=== PATIENT | male | born 1945 | race Caucasian/White ===

== ENCOUNTER 2021-05-21 09:30 | Outpatient (RCR) | payer MEDICARE, SELFPAY ==
--- NOTE | 2021-04-21 09:47 | HP.PTEVAL_ITS ---
Patient's Visit Information ANANDA JIMENEZ is a 75 year old M referred to Physical Therapy by Dr. Brett Long MD with a diagnosis of Right TKR 03/30. Date of Evaluation: 04/21/21 Physical Therapist: Altagracia Crandall DPT - Visit Plan Frequency: 2x /Week Duration: 4 Weeks Plan: Left TKR 03/30/21- Focus on LE strength and functional mobility. Reviewed HEP from - Subjective Left TKR by Dr. Brett Long Mar 30, 2021. Stayed overnight at the hospital- lives with in a ranch home with a basement- garage in the lower level. Does have to do the stairs- HR and no issues. He uses a cane at this time- but no AD prior to surgery. Fully I prior to surgery. No pain currently- has been working a lot at home- his makes him. She stretches him and does squats and pushing into extension. Once in awhile he gets dull and achy but it goes away quickly. No problems getting around at this time. Sleep: not disturbed. 60% back to normal activities. 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 PMHx/Meds: see list. - Objective Posture: FH, RS- can correct with verbal cues. Gait: slightly antalgic- decreased heel strike on the left with straight cane. Stairs: asc/desc 8 recip with 1 HR and cane- slow neeraj and decrease smoothness. HR/TR: able. Balance: see FGA. Girth: Patella: 46 cm 6 above: 51 cm. ROM: 0-120 degrees. Strength: Core: fair plus, Hip: 4+/5 SLR: no lag, Knee: Flexion: 19.3, Extn: 28.7, Ankle: 5/5. Flex: HS: moderate, Gastroc: moderate - Balance/Special Test Scores Functional Gait Assessment Score: 21 % Disability: 30.0000 Lower Extremity Functional Score: 50 TUG Test Time Seconds: 14.16 30 Second Chair Rise Test Seconds: 10 WOMAC Total Score: 20 WOMAC Percentatge: 79.1700 - Goals Goal 1:: Patient will be I with HEP and progression Goal Time Frame: 4-6 Weeks Goal 2:: Patient will asc/desc 8 stairs recip with 1 HR and normalized pattern Goal Time Frame: 4-6 Weeks Goal 3:: Patient will amb >300 feet without AD Goal Time Frame: 4-6 Weeks Goal 4:: Patient will report return to all normal activities-90% improvement Goal Time Frame: 4-6 Weeks - Rehabilitation Potential Physical Therapy Diagnosis: Patient presents s/p left TKR 03/30/2021- he has decreased ROM, LE and core strength/stabilization, flex and muscular endurance leading to decreased ability to perform ADL's Rehabilitation Potential: Good - Anticipated Interventions Patient/Client Instruction: Educate patient on: Benefits of Fitness Program Therapeutic Exercise to Include: Strength training, Endurance training, Balance training, Coordination, Agility training, Body mechanics, Postural training, Flexibilty training, Gait and locomotor training, Neuromotor development, Passive ROM, Active ROM, Dynamic Lumbar Stabilization For the Purpose of:: To improve muscle performance and motor function Cryotherapy (ice pack, ice massage): Yes Thermo therapy (hot pack): Yes Ultrasound (thermal/non thermal): No Thank you for the opportunity to evaluate your patient. For Medicare and Medicare HMO plans, please review the plan of care and approve it. It will need to be FAXED BACK to us at [phone] for Medicare purposes. For Medicare only, by signing this I certify the plan of care. Please let me know if there are questions or concerns regarding this plan of care. Physician Signature: Date:
--- NOTE | 2021-05-21 09:59 | HP.PTDCSUM_ITS ---
It has been my pleasure to treat ANANDA JIMENEZ referred by Dr. Brett Long MD, with the diagnosis of Left TKR 03/30 for a total of 8 visit(s). Discharge Date: Please see the following information for a summary of their discharge status. Subjective: Little Stiff today as he had to put a new dryer vent in yesterday and was down on his knees. Patient is back to all normal ADL's % Improvement: 90 Objective/Function: Posture: good throughout Gait: no deviation noted no AD Stairs: asc/desc 8 recip with no HR HR/TR: able. SLS: 15 sec Girth: Patella: 43.5 cm 6 above: 53 cm. ROM: 0-135 degrees. Strength: Core: fair plus, Hip: 4+/5 SLR: no lag, Knee: Flexion: 27.8, Extn: 47.8, Ankle: 5/5. Flex: HS: moderate, Gastroc: moderate Goal 1:: Patient will be I with HEP and progression Goal Progress: Goal Met Goal 2:: Patient will asc/desc 8 stairs recip with 1 HR and normalized pattern Goal Progress: Goal Met Goal 3:: Patient will amb >300 feet without AD Goal Progress: Goal Met Goal 4:: Patient will report return to all normal activities-90% improvement Goal Progress: Goal Met Plan: Discharge to [facility] If there are questions or concerns regarding this patient's physical therapy, please feel free to call me at [phone]. Thank you for the referral of this patient. Sincerely, Altagracia Crandall, DPT Balance/Gait/Functional tests - Balance/Special Test Scores Functional Gait Assessment Score: 21 % Disability: 30.0000 Lower Extremity Functional Score: 80 TUG Test Time Seconds: 9.2 Tug Test: <10 sec.=free mobile 30 Second Chair Rise Test Seconds: 12 WOMAC Total Score: 0 WOMAC Percentage: 100
== END 2021-05-21 10:12 | disposition home or self-care (01) ==
LOC: PT 09:30
PROVIDERS: Referring Provider Orthopaedic Surgery; Visit Provider Orthopaedic Surgery
DX: Z47.1 Aftercare following joint replacement surgery (principal); Z96.651 Presence of right artificial knee joint
CPT/HCPCS: 97110; 97162; 97164

== ENCOUNTER 2022-05-12 10:14 | Emergency (ER) | payer MEDICARE, SELFPAY ==
[2022-05-12 10:16] VITALS: BP 117/63; PULSE 87; RESP 18; TEMP 38.4; O2SAT 90; BMI 24.8
[2022-05-12] MEDS: 0.9% Normal Saline 1,000 ML 1000 ML IV (11:30)
--- NOTE | 2022-05-12 11:33 | EX.ED.DYSGE1 ---
HPI History of Present Illness Chief Complaint: Nausea/Vomiting Informant: patient Onset/Context/Timing Onset: Days (5) Context: Gradual Onset Timing: Continuous Quality: Aching Location: Generalized Worsened by: Nothing Relieved by: Nothing Narrative Narrative: Patient presents with fever, cough, nausea, and vomiting for the past 5 days. Patient states it is gradually gotten worse. Patient states he feels achy all over. Patient states nothing makes it worse. Patient states nothing makes it better. Patient states he is coughing up some yellow sputum. Patient states his fever was up to 101.6. Patient admits to some neck pain. Patient denies any diarrhea. Patient denies any hematemesis or coffee-ground emesis. [facility] Medical History (Updated 05/12/22 @ 13:[address] Viet Silva, ) PTSD (post-traumatic stress disorder) TIA (transient ischemic attack) Home Medications albuterol sulfate 90 mcg/actuation aerosol inhaler (Ventolin HFA) 2 puff inhalation Q6H PRN PRN Sob &/Or Wheezing 12/05/15 [History Last Taken 12/05/15] aspirin 325 mg tablet 325 mg PO DAILY@0800 12/05/15 [History Last Taken 12/05/15] budesonide-formoterol HFA 160 mcg-4.5 mcg/actuation aerosol inhaler (Symbicort) 1 puff inhalation BID 12/05/15 [History Last Taken 12/05/15] clopidogrel 75 mg tablet 75 mg PO DAILY 12/05/15 [History Last Taken 12/04/15] epinephrine 0.3 mg/0.3 mL injection, auto-injector 0.3 mg IM X1 12/05/15 [History Last Taken Unknown] loratadine 10 mg tablet (Allergy Relief (loratadine)) 10 mg PO QHS 12/05/15 [History Last Taken 12/04/15] oxybutynin chloride 10 mg tablet,extended release 24 hr (Ditropan XL) 20 mg PO BID 12/05/15 [History Last Taken 12/05/15] prazosin 5 mg capsule (Minipress) 5 mg PO QHS 12/05/15 [History Last Taken 12/04/15] sertraline 100 mg tablet 200 mg PO DAILY 12/05/15 [History Last Taken 12/05/15] simvastatin 10 mg tablet 10 mg PO QHS 12/05/15 [History Last Taken 12/04/15] trazodone 50 mg tablet 100 mg PO QHS 12/05/15 [History Last Taken 12/04/15] oseltamivir 75 mg capsule 75 mg PO BID #10 CAPSULES 05/12/22 [Rx Last Taken Unknown] Allergy/AdvReac Type Severity Reaction Status Date / Time penicillin G Allergy Unknown Verified 05/12/22 10:15 venom-honey bee Allergy Unknown Verified 05/12/22 10:15 [bee venom (honey bee)] venom-wasp [wasp venom] Allergy Unknown Verified 05/12/22 10:15 Surgical History (Updated 05/12/22 @ 11:[address] Viet Silva DO) Hx of total knee replacement Social History Smoking Status: Former smoker ROS ROS ED Constitutional Constitutional ED: Reports chills and fever(s) Eyes Eyes: Denies blurry vision or change in vision ENT ENT ED: Reports sore throat; Denies rhinorrhea Cardiovascular Cardiovascular: Reports chest pain; Denies palpitations Respiratory/Chest Respiratory/Chest: Reports cough and sputum; Denies dyspnea Gastrointestinal Gastrointestinal: Reports nausea and vomiting Genitourinary Genitourinary ED: Denies dysuria or hematuria Musculoskeletal Musculoskeletal: Reports neck pain; Denies back pain Integumentary Denies abscess or rash Neurologic Neurologic: Denies headache(s) or weakness Allergic/Immunologic Allergic/Immunologic ED: Denies mouth swelling or urticaria EXAM Physical Exam Const Vital Signs: 05/12/22 10:16 05/12/22 11:59 05/12/22 12:39 Temperature 101.2 F H 100.1 F H Temperature Source Oral Temporal Pulse Rate 87 87 Respiratory Rate 18 18 22 H Respiratory Pattern Normal Blood Pressure 117/63 115/59 L Blood Pressure Mean 81 77 Pulse Ox 90 94 Oxygen Delivery Method Room Air Room Air Positive well nourished and well developed General Appearance ED: well developed and NAD HEENT Reports moist mucous membranes Neck supple and no JVD Resp normal respiratory effort Auscultation: wheezes expiratory wheezes and throughout Cardio regular rate, regular rhythm and no murmurs GI normal to inspection, nondistended, normoactive bowel sounds Palpation: soft and tender LLQ, RLQ and suprapubic; Negative for guarding or rebound tenderness present Extremity normal to inspection General Extremety ED: Negative for edema or tenderness General Extremity: Negative for edema Neuro oriented x3, CN's II-XII intact bilaterally and no sensory deficits noted Sensorium / Orientation: alert Motor Exam: strength 5/5 throughout Psych mental status grossly normal Skin no rashes or lesions noted MDM MDM MDM Narrative Medical decision making narrative: Patient was given IV fluids here. Patient was given a dose of Tylenol. Patient was given a DuoNeb aerosol. EKG was obtained. On my interpretation, it showed a normal sinus rhythm with a rate of 79. PA interval, QRS interval, and QTc intervals were all normal. There is left axis deviation at -36. There are no acute ST or T wave changes. CBC shows a mild anemia with hemoglobin of 11.0 and hematocrit 33.5. Pro time was slightly elevated at 15.6. INR is 1.3. PTT is 34.6. Comprehensive metabolic profile was essentially within normal limits. Lactate was normal. High-sensitivity troponin was normal. Urinalysis does not show any evidence of urinary tract infection or hematuria. PA and lateral chest x-ray was obtained. There are 2 views. On my interpretation, lung rodrigues bibasilar scarring or patchy infiltrate present in the left lung base. There is normal cardiac silhouette. Bony thorax is normal. Radiologist also interpreted the x-ray and agrees. COVID-19 rapid antigen was obtained and was negative. Influenza A rapid antigen was obtained and was positive. Influenza B rapid antigen was negative. Patient is feeling better on reevaluation. Patient was given a dose of Tamiflu here. Patient was given a prescription for Tamiflu. Patient was instructed to follow-up with his primary care physician in 3 to 5 days. Patient understood and was agreeable with the plan. All questions were answered. Lab Data Attestation: I reviewed the patient's lab results. Labs: Laboratory Results - last 24 hr 05/12/22 05/12/22 05/12/22 11:50 11:50 11:50 WBC 4.8 RBC 3.60 L Hgb 11.0 L Hct 33.5 L MCV 93.1 MCH 30.6 MCHC 32.8 RDW Std Deviation 47.0 H RDW Coeff of Rafita 13.8 Plt Count 65 L MPV 11.1 Immature Gran % (Auto) 0.600 Neut % (Auto) 85.1 H Lymph % (Auto) 5.5 L [place] % (Auto) 8.2 Eos % (Auto) 0.4 Baso % (Auto) 0.2 Absolute Neuts (auto) 4.1 Absolute Lymphs (auto) 0.26 L Nucleated RBC % 0 Differential Comment SCANNED Platelet Estimate MOD DEC PT 15.6 H INR 1.3 APTT 34.6 Sodium 139 Potassium 3.8 Chloride 108 H Carbon Dioxide 25.0 Anion Gap 6 BUN 22 H Creatinine 1.22 Estim Creat Clear Calc 72.13 Est GFR (MDRD) Af Amer 75 Est GFR (MDRD) Non-Af 62 BUN/Creatinine Ratio 18.0 Glucose 162 H Lactic Acid Calcium 8.1 L Total Bilirubin 0.60 AST 15 ALT 22 Alkaline Phosphatase 54 Troponin I High Sens 8 Total Protein 6.5 Albumin 3.0 L Globulin 3.5 Albumin/Globulin Ratio 0.9 Urine Color Urine Clarity Urine pH Ur Specific [place] Urine Protein Urine Glucose (UA) Urine Ketones Urine Occult Blood Urine Nitrite Urine Bilirubin Urine Urobilinogen Ur Leukocyte Esterase Urine RBC Urine WBC Ur Squamous Epith Cells Urine Bacteria Urine Mucus 05/12/22 05/12/22 11:50 12:00 WBC RBC Hgb Hct MCV MCH MCHC RDW Std Deviation RDW Coeff of [place] Plt Count MPV Immature Gran % (Auto) Neut % (Auto) Lymph % (Auto) [place] % (Auto) Eos % (Auto) Baso % (Auto) Absolute Neuts (auto) Absolute Lymphs (auto) Nucleated RBC % Differential Comment Platelet Estimate PT INR APTT Sodium Potassium Chloride Carbon Dioxide Anion Gap BUN Creatinine Estim Creat Clear Calc Est GFR (MDRD) Af Amer Est GFR (MDRD) Non-Af BUN/Creatinine Ratio Glucose Lactic Acid 0.8 Calcium Total Bilirubin AST ALT Alkaline Phosphatase Troponin I High Sens Total Protein Albumin Globulin Albumin/Globulin Ratio Urine Color Yellow Urine Clarity Sl. Cloudy Urine pH 5.0 Ur Specific [place] 1.025 Urine Protein 30 H Urine Glucose (UA) Normal Urine Ketones Negative Urine Occult Blood 250 H Urine Nitrite Negative Urine Bilirubin Negative Urine Urobilinogen Normal Ur Leukocyte Esterase 25 H Urine RBC 0-5 SEEN Urine WBC 0-5 SEEN Ur Squamous Epith Cells 0 SEEN Urine Bacteria 0 SEEN Urine Mucus 0 SEEN Radiography Chest X-Ray - ED: 2 View, Read by ED Physician, Read by Radiologist and Left Infiltrate Diagnostic Testing: Clinical Impression(s) from Imaging Studies Chest X-Ray 05/12/22 12:20 IMPRESSION: Findings suggestive of superimposed patchy infiltrate in the left lower lobe on bibasilar scarring. Electronically Signed: Oren Ball MD at 12:43 EST , EKG Initial EKG: Attestation: I personally reviewed and interpreted this EKG as follows: Interpretation: Sinus Rhythm (79) and No Acute Injury Pattern Comments: There is left axis deviation at -36 Prior EKG tracings: available for review Prior: Unchanged (12/16/2016) Discharge Plan Triage Chief Complaint: Nausea/Vomiting Other Complaint: Fever Shortness of Breath ED Provider: Viet Silva Dx/Rx/DC Orders Clinical Impression: Influenza A Instructions: ED Influenza (Adult) Prescriptions: New oseltamivir [oseltamivir] 75 mg capsule 75 mg PO BID Qty: 10 0RF No Action oxybutynin chloride [Ditropan XL] 10 MG tablet extended release 24hr 20 mg PO BID Label Comments: urinary signs and symptoms aspirin 325 MG tablet 325 mg PO DAILY@0800 Label Comments: HEART HEALTH sertraline 100 MG tablet 200 mg PO DAILY Label Comments: MENTAL HEALTH simvastatin 10 MG tablet 10 mg PO QHS Label Comments: CHOLESTEROL LOWERING clopidogrel 75 MG tablet 75 mg PO DAILY Label Comments: BLOOD THINNER prazosin [Minipress] 5 MG capsule 5 mg PO QHS Label Comments: SLEEP epinephrine 0.3 MG syringe 0.3 mg IM X1 Label Comments: BEE STINGS albuterol sulfate [Ventolin HFA] 1 INHALER inhaler 2 puff inhalation Q6H PRN PRN (Reason: Sob &/Or Wheezing) Label Comments: BREATHING loratadine [Allergy Relief (loratadine)] 10 MG tablet 10 mg PO QHS Label Comments: ALLERGIES budesonide-formoterol [Symbicort] 1 INHALER inhaler 1 puff inhalation BID Label Comments: BREATHING trazodone 50 MG tablet 100 mg PO QHS Label Comments: SLEEP [facility] [Primary [facility] Provider] - 3-5 Days Disposition Disposition: Home, Self Care
[2022-05-12] MEDS: Acetaminophen 500 MG Tablet 1000 MG PO (11:53)
[2022-05-12 11:59] VITALS: RESP 18
[2022-05-12] MEDS: Ipratropium/Albuterol Sulfate 3 ML AMPUL.NEB INHALATION (12:00)
[2022-05-12 12:01] LABS: Bacteria 0 SEEN /hpf (None Seen); Mucous, Urine 0 SEEN /hpf (<or=2+); Squamous Epithelial Cells - UA 0 SEEN /hpf (0-5)
[2022-05-12 12:02] LABS: Color, Urine Yellow (Yellow); Glucose, Dipstick Normal (Normal); Ketone-Dipstick Negative (Negative); Leukocyte Esterase-Dipstick 25 /ul (Negative); Nitrite-Dipstick Negative (Negative); Occult Blood-Urine 250 /ul (Negative); Protein-Dipstick 30 mg/dl (Negative); Specific Gravity, Urine 1.025 (1.002-1.030); Urine Bilirubin Dipstick Negative (Negative); Urine Clarity Sl. Cloudy (Clear); Urine Urobilinogen Normal (Normal)
[2022-05-12 12:10] LABS: Red Blood Cells-Urine 0-5 SEEN /hpf (0-5); White Blood Cells 0-5 SEEN /hpf (0-5)
[2022-05-12 12:11] LABS: International Normalized Ratio 1.3; Prothrombin Time (Protime)PT. 15.6 SECONDS (11.7-14.9)
[2022-05-12 12:12] LABS: Partial Thromboplast Time 34.6 Seconds (24.1-36.2)
[2022-05-12 12:13] LABS: Absolute Lymphocyte Count 0.26 X10^3/uL (0.83-4.51); Absolute Neutrophil Count 4.1 X10^3/uL (2.0-7.7); Basophil# 0.01 X10^3/uL; Basophil% 0.2 % (0-1); Eosinophil# 0.02 X10^3/uL; Eosinophils% 0.4 % (0-5); Hematocrit 33.5 % (40-54); Lymphocyte # 0.26 X10^3/ul (0.83-4.51); Lymphocyte % 5.5 % (19-41); Mean Corp Hgb Conc 32.8 g/dL (32-36); Mean Corpuscular Hgb 30.6 pg (27.0-32.0); Mean Corpuscular Volume 93.1 fL (80-94); Mean Platelet Vol. 11.1 fl (6.2-12.0); Monocyte# 0.39 X10^3/uL; Monocyte% 8.2 % (0-10); NRBC Flagged by Analyzer 0 % (0-5); Neutrophil # 4.05 X10^3/uL (2.7-7.7); Neutrophil % 85.1 % (47-70); POSITIVE COUNT YES; POSITIVE DIFFERENTIAL YES; Platelet Count 65 K/mm3 (150-450); RBC Distribution Width CV 13.8 % (11.6-14.6); White Blood Count 4.8 K/mm3 (4.4-11.0)
[2022-05-12 12:18] LABS: Differential Indicated SCAN CRITERIA MET
[2022-05-12 12:19] LABS: ALB/GLOB Ratio 0.9 RATIO (0.9-2.4); AST(SGOT) 15 U/L (15-37); Alanine Aminotransfer ALT/SGPT 22 U/L (16-61); Alkaline Phosphatase 54 U/L (45-117); Anion Gap 6 (5-15); BUN 22 mg/dL (7-18); Calcium,Total 8.1 mg/dL (8.5-10.1); Chloride 108 mmol/L (98-107); Creatinine, Serum 1.22 mg/dL (0.70-1.30); EST Glomerular Filtration Rate 62 mL/min (>60); Est Glom Filt Rate - Afr Amer 75 mL/min (>60); Estimated Creatinine Clearance 72.13 ml/min; Globulin 3.5 g/dL (2.2-4.2); Glucose 162 mg/dL (74-106); Potassium 3.8 mmol/L (3.5-5.1); Protein, Total 6.5 g/dL (6.4-8.2); Sodium Level 139 mmol/L (136-145); Troponin-I HS 8 pg/mL (3.0-78.0)
--- NOTE | 2022-05-12 12:20 | RAD_ITS ---
STUDY: X-RAY CHEST REASON FOR EXAM: Male, 76 years old. Cough and fever. Weakness. TECHNIQUE: PA and lateral views of the chest. COMPARISON: Comparison is made with prior study dated 12/16/2016. FINDINGS: Stable bibasilar interstitial scarring. I suspect superimposed patchy infiltrate in the left lower lobe. There is no demonstrated pleural abnormality. Normal size heart. Normal mediastinum and gwen. Normal visualized pulmonary arteries. There is atherosclerotic calcification of the aortic arch with tortuosity. There are diffuse degenerative changes of the visualized thoracic spine. Normal visualized ribs, clavicles, and shoulders. There is no demonstrated abnormality of the visualized soft tissue structures of the upper abdomen. RAD/Chest PA and Lateral IMPRESSION: Findings suggestive of superimposed patchy infiltrate in the left lower lobe on bibasilar scarring. Electronically Signed: Oren Ball MD at 12:43 EST ,
[2022-05-12 12:26] LABS: Lactic Acid 0.8 mmol/L (0.4-1.9)
[2022-05-12 12:39] VITALS: BP 115/59; PULSE 87; RESP 22; TEMP 37.8; O2SAT 94
[2022-05-12] MEDS: Oseltamivir Phosphate 75 MG Capsule PO (12:39)
[2022-05-12 12:46] LABS: Differential Comment SCANNED; Platelet Estimate MOD DEC (ADEQ)
== END 2022-05-12 13:55 | disposition home or self-care (01) ==
PROVIDERS: Emergency Provider Emergency Medicine; Visit Provider Emergency Medicine
DX: J10.1 Influenza due to other identified influenza virus with other respiratory manifestations (principal); Z87.891 Personal history of nicotine dependence; R11.2 Nausea with vomiting, unspecified; R07.9 Chest pain, unspecified
CPT/HCPCS: 71046; 80053; 81001; 83605; 84484; 85025; 85610; 85730; 87428; 93005; 94640; 96360; 99285; A4216

== ENCOUNTER 2023-07-30 11:35 | Inpatient (IN) | payer OTHER, SELFPAY ==
[2023-07-30] VITALS (29 sets, daily range): BP systolic 108–142; BP diastolic 56–97; PULSE 53–71; RESP 13–26; TEMP 36.3–37.3; O2SAT 93–98; BMI 25.0; BMI 26.9
--- NOTE | 2023-07-30 11:36 | CT_ITS ---
STUDY: STROKE PROTOCOL CT BRAIN WITHOUT CONTRAST REASON FOR EXAM: Male, 78 years old. Neuro deficit, acute, stroke suspected RADIATION DOSAGE (If Supplied By Facility): CTDIvol = ( ) mGy, DLP = ( ) mGycm TECHNIQUE: Transaxial CT imaging of the brain was performed without administration of intravenous contrast material. Individualized dose optimization techniques were used for this CT. COMPARISON: None. FINDINGS: Normal soft tissue structures. Normal calvarium. There is mild cerebral atrophy with widening of the extra-axial spaces and ventricular dilatation. There are areas of decreased attenuation within the white matter tracts of the supratentorial brain, consistent with microvascular disease changes. Normal basal ganglia and thalami. Normal brainstem. Normal cerebellum. There is no demonstrated asymmetric dense artery sign or sulcal effacement or parenchymal edema. There is no intracranial hemorrhage. There are no findings of an acute ischemic infarction. Normal visualized paranasal sinuses. ASPECTS Score for Acute Strokes: 10 CT/STROKE Brain/Head without Cont IMPRESSION: 1. Chronic involutional changes of the brain. 2. Concern for stroke/positive symptomatology should be further evaluated with CT brain perfusion/CTA or MRI of the brain for further assessment. N.B. : The above Results were Read Back by Melvin Chicas MD to Blas Khoury MD, and understanding confirmed on 07/30/2023 11:51:29 (ET). Electronically Signed: Melvin Chicas MD at 11:52 EST ,
--- NOTE | 2023-07-30 11:36 | EKG12_ITS ---
Test Reason : STROKE Blood Pressure : / mmHG Vent. Rate : 060 BPM Atrial Rate : 060 BPM P-R Int : 152 ms QRS Dur : 088 ms QT Int : 446 ms P-R-T Axes : 039 -25 019 degrees QTc Int : 446 ms Normal sinus rhythm Normal ECG Confirmed by DULCE MARIA VARGAS, ROHIT ([id number]), supervising film or videotape editor ARTHUR LUGO ([id number]) on 08/01/2023 10:07:15 AM Referred By: Confirmed By:ROHIT العراقي MD
--- NOTE | 2023-07-30 11:37 | CT_ITS ---
STUDY: CTA HEAD AND NECK WITH CONTRAST REASON FOR EXAM: Male, 78 years old. Neuro deficit, acute, stroke suspected RADIATION DOSAGE (If Supplied By Facility): CTDIvol = ( 28.07 ) mGy, DLP = ( 773.55 ) mGycm TECHNIQUE: CT angiography was performed with a multi-detector CT scanner. Data acquisition was obtained from the skull base through the vertex following intravenous administration of IV 100mL [id number]-[id number]. MIP images were reconstructed from the axial data set. Post-processing of the angiographic images was performed, with multiplanar reformation and 3D reconstruction. Individualized dose optimization techniques were used for this CT. COMPARISON: Head CT dated July 30, 2023 FINDINGS: Normal bilateral petrous carotid arteries. Normal right cavernous carotid artery with a normal supraclinoid bifurcation. Normal left cavernous carotid artery with a normal supraclinoid bifurcation. Normal right A1 segments of the anterior cerebral artery. Normal left A1 segments of the anterior cerebral artery. Normal intact anterior communicating artery (ACOM). Normal bilateral A2 segments of the anterior cerebral arteries. Normal right M1 and M2 segments of the middle cerebral arteries, with a normal M1 bifurcation. Normal left M1 and M2 segments of the middle cerebral arteries, with a normal M1 bifurcation. Normal right posterior communicating artery (PCOM). Normal left posterior communicating artery (PCOM). There is a small atretic right vertebral artery with a dominant left vertebral artery. Normal basilar artery with a normal basilar bifurcation. The visualized bilateral superior cerebellar (SCA) arteries are normal. Normal bilateral P1, P2 and visualized P3 segments of the posterior cerebral arteries. There is no demonstrated aneurysm of the [place]. There is no visualized thrombus of the large arteries of the brain or hemodynamically significant stenosis. AORTIC ARCH: There is atherosclerotic calcific plaque formation of the aortic arch and great vessels arising from the aortic arch, without a hemodynamically significant stenosis. There is a normal origin of the brachiocephalic, left common carotid, and left subclavian arteries. Normal origins of the brachiocephalic, left common carotid, and left subclavian arteries. RIGHT CAROTID ARTERIES: Normal right common carotid artery (CCA). There is mild atherosclerotic plaque formation with minimal narrowing of the right carotid bulb. Normal origin of the right internal carotid (ICA) artery without a hemodynamically significant stenosis. Normal visualized cervical portion of the right internal carotid artery. There is mild atherosclerotic plaque formation of the origin of the right external carotid artery with less than 50% cross sectional diameter stenosis. LEFT CAROTID ARTERIES: Normal left common carotid artery (CCA). Normal left common carotid bulb. Normal origin of the left internal carotid (ICA) artery without a hemodynamically significant stenosis. Normal visualized cervical portion of the left internal carotid artery. There is mild atherosclerotic plaque formation of the origin of the left external carotid artery with less than 50% cross sectional diameter stenosis. VERTEBRAL ARTERIES: There is enhancement within the bilateral vertebral arteries with a small right vertebral artery, and a dominant left vertebral artery. CT/STROKE CTA Head AND Neck W/Con IMPRESSION: There is no demonstrated aneurysm of the [place]. There is no visualized thrombus of the large arteries of the brain or hemodynamically significant stenosis. 1. Normal bilateral cervical carotid arteries. N.B. : The above Results were Read Back by Melvin Chicas MD to Blas Khoury MD, and understanding confirmed on 07/30/2023 12:25:09 (ET). Electronically Signed: Melvin Chicas MD at 12:27 EST ,
--- NOTE | 2023-07-30 11:37 | NURSING ---
1130 STROKE ALERT CALLED PRIOR TO ARRIVAL
--- NOTE | 2023-07-30 11:46 | ED.VIS.STROK ---
HPI History of Present Illness Chief Complaint: Stroke Alert Detail of Chief Complaint: Patient presents as stroke alert. Informant: patient and EMS Onset/Context/Timing Onset: Today (929) Context: Sudden Onset Timing: Continuous Quality and Location: Positive for Left Facial Droop, Left Face Parasthesia, Left Arm Parasthesia, Left Leg Parasthesia, Left Arm Weakness, Left Leg Weakness and Slurred Speech Onset: 929 Current Severity: Moderate Maximum Severity: Moderate Worsened by: Not applicable Relieved by: Nothing Associated Symptoms Associated Symptoms: Negative for Headache, Nausea, Vomiting or Chest Pain Narrative Narrative: Patient is a 78-year-old male with history of prior stroke, he is on aspirin and Plavix. He is on no anticoagulant. He has history of depression and hypercholesterolemia as well as COPD. Patient denies headache. Patient denies visual disturbance. Patient has trouble with speech. He is unable to use left side of his body. He has no sensation left side of his body. He has no contraindication to thrombolytics. There is no history of GI bleed, recent stroke, recent surgery and he is on no anticoagulant. Prior similar symptoms: Yes Recent Illness/Hospitalization: No PFSH PFS Medical History PTSD (post-traumatic stress disorder) Stroke TIA (transient ischemic attack) Home Medications albuterol sulfate 90 mcg/actuation aerosol inhaler (Ventolin HFA) 2 puff inhalation Q6H PRN PRN Sob &/Or Wheezing 12/05/15 [History Last Taken 12/05/15] aspirin 325 mg tablet 325 mg PO DAILY@0800 12/05/15 [History Last Taken 12/05/15] budesonide-formoterol HFA 160 mcg-4.5 mcg/actuation aerosol inhaler (Symbicort) 1 puff inhalation BID 12/05/15 [History Last Taken 12/05/15] clopidogrel 75 mg tablet 75 mg PO DAILY 12/05/15 [History Last Taken 12/04/15] epinephrine 0.3 mg/0.3 mL injection, auto-injector 0.3 mg IM X1 12/05/15 [History Last Taken Unknown] loratadine 10 mg tablet (Allergy Relief (loratadine)) 10 mg PO QHS 12/05/15 [History Last Taken 12/04/15] oxybutynin chloride 10 mg tablet,extended release 24 hr (Ditropan XL) 20 mg PO BID 12/05/15 [History Last Taken 12/05/15] prazosin 5 mg capsule (Minipress) 5 mg PO QHS 12/05/15 [History Last Taken 12/04/15] sertraline 100 mg tablet 200 mg PO DAILY 12/05/15 [History Last Taken 12/05/15] simvastatin 10 mg tablet 10 mg PO QHS 12/05/15 [History Last Taken 12/04/15] trazodone 50 mg tablet 100 mg PO QHS 12/05/15 [History Last Taken 12/04/15] oseltamivir 75 mg capsule 75 mg PO BID #10 CAPSULES 05/12/22 [Rx Last Taken Unknown] Allergy/AdvReac Type Severity Reaction Status Date / Time penicillin G Allergy Unknown Verified 07/30/23 11:46 venom-honey bee Allergy Unknown Verified 07/30/23 11:46 [bee venom (honey bee)] venom-wasp [wasp venom] Allergy Unknown Verified 07/30/23 11:46 Surgical History Hx of total knee replacement Social History Smoking Status: Former smoker ROS ROS ED Constitutional Constitutional ED: Denies chills, fever(s) or subjective Eyes Eyes: Denies blurry vision, change in vision or diplopia ENT ENT ED: Denies ear pain, rhinorrhea or sore throat Cardiovascular Cardiovascular: Denies chest pain, palpitations or racing heartbeat Respiratory/Chest Respiratory/Chest: Denies cough, dyspnea or dyspnea on exertion Gastrointestinal Gastrointestinal: Denies melena, nausea or vomiting Genitourinary Genitourinary ED: Denies hematuria Musculoskeletal Musculoskeletal: Denies back pain, myalgias or neck pain Integumentary Denies rash Neurologic Neurologic: Reports paresthesias and weakness; Denies headache(s) Hematologic/Lymphatic Hematologic/Lymphatic: Denies easy bleeding or easy bruising EXAM Physical Exam Const Vital Signs: 07/30/23 11:44 07/30/23 11:48 07/30/23 11:52 Temperature 97.3 F L Temperature Source Oral Pulse Rate Respiratory Rate Blood Pressure 142/78 H Blood Pressure Mean Blood Pressure Source Blood Pressure Position Blood Pressure Location Pulse Ox Oxygen Delivery Method Room Air 07/30/23 11:52 07/30/23 11:36 07/30/23 11:36 Temperature 97.4 F L Temperature Source Temporal Pulse Rate 67 63 65 Respiratory Rate 19 H 18 19 H Blood Pressure 134/56 H 142/78 H 142/78 H Blood Pressure Mean 82 99 99 Blood Pressure Source Monitor Blood Pressure Position Semi-Fowlers Blood Pressure Location Left Arm Pulse Ox 97 97 98 Oxygen Delivery Method Room Air Room Air Room Air 07/30/23 12:11 Temperature 97.3 F L Temperature Source Temporal Pulse Rate 65 Respiratory Rate 26 H Blood Pressure 125/71 H Blood Pressure Mean 89 Blood Pressure Source Monitor Blood Pressure Position Semi-Fowlers Blood Pressure Location Left Arm Pulse Ox 97 Oxygen Delivery Method Room Air Positive well nourished and well developed General Appearance ED: well developed and NAD HEENT Reports moist mucous membranes atraumatic Nose: other Other Details: Negative Eyes PERRL and EOMs intact bilaterally General Eye ED: Negative for pale conjunctiva Neck no lymphadenopathy, supple and no JVD Chest Wall inspection of chest normal and palpation of chest normal Resp normal respiratory effort and clear to auscultation bilaterally Cardio no murmurs Rate: regular rate Rhythm: regular rhythm Heart Sounds: S1 normal and S2 normal GI normal to inspection, nondistended, normoactive bowel sounds, soft to palpation, non-tender, non-distended and no masses Auscultation: normoactive bowel sounds Back/Spine no CVA tenderness Extremity normal to inspection General Extremety ED: Yes deformity General Extremity: deformity Neuro oriented x3, CN's II-XII intact bilaterally and no sensory deficits noted Tami Coma Scale: document GCS findings Spontaneous Obeys Commands Oriented 15 Sensorium / Orientation: Negative for alert Psych mental status grossly normal Skin no wounds General Skin Exam: Negative for jaundice Lesions: no lesions Rashes: no rashes NIHSS NIHSS Initial: 1a Level of Consciousness: 1 1b LOC Questions (Score 2 if aphasic/stupor): 0 1c LOC Commands (Only score 1st attempt): 0 2 Best Gaze (If aphasic, use reflexive mvmts.): 0 3 Visual: 0 4 Facial Palsy: 1 5 Motor Arm Right (UN = amputation/fusion): 0 5 Motor Arm Left: 4 6 Motor Leg Right: 0 6 Motor Leg Left: 3 7 Limb ataxia (Only + if out of proportion): 0 8 Sensory (Aphasia/stupor=0 or 1, coma=2): 1 9 Best Language: 0 10 Dysarthria (mute, coma=2, intubated=UN): 1 11 Extinction and Inattention (only scored if +): 1 Total Score: 12 MDM MDM MDM Narrative Medical decision making narrative: Stroke order set was ordered. Tenecteplase was ordered. I received call at 1150 by radiologist that there is no acute abnormality on the scan. History & Record Review Discussion w/independent historian: EMS personnel, Patient and Family Additional record(s) reviewed:: Prior outpatient record and Prior ED visit Lab Data Attestation: I reviewed the patient's lab results. Lab results narrative: CBC reveals mild anemia. Platelet count is 112,000. Glucose is 157 with a normal CO2 anion gap. Electrolytes are unremarkable. Renal function is normal. Troponin is normal. Labs: Laboratory Results - last 24 hr 07/30/23 11:45 WBC 6.1 RBC 4.10 L Hgb 12.4 L Hct 37.2 L MCV 90.7 MCH 30.2 MCHC 33.3 RDW Std Deviation 45.6 H RDW Coeff of Rafita 13.7 Plt Count 112 L MPV 10.5 Immature Gran % (Auto) 0.700 Neut % (Auto) 69.6 Lymph % (Auto) 18.8 L [place] % (Auto) 7.4 Eos % (Auto) 3.0 Baso % (Auto) 0.5 Absolute Neuts (auto) 4.2 Absolute Lymphs (auto) 1.14 Nucleated RBC % 0 PT 13.6 INR 1.0 APTT 29.9 Sodium 138 Potassium 4.4 Chloride 109 H Carbon Dioxide 26.0 Anion Gap 3 L BUN 23 H Creatinine 1.10 Estim Creat Clear Calc 77.58 Est GFR (MDRD) Af Amer 84 Est GFR (MDRD) Non-Af 69 BUN/Creatinine Ratio 20.9 H Glucose 157 H Calcium 8.7 Troponin I High Sens 5 Radiography Diagnostic Testing: Clinical Impression(s) from Imaging Studies Brain CT 07/30/23 11:36 IMPRESSION: 1. Chronic involutional changes of the brain. 2. Concern for stroke/positive symptomatology should be further evaluated with CT brain perfusion/CTA or MRI of the brain for further assessment. N.B. : The above Results were Read Back by Melvin Chicas MD to Blas Khoury MD, and understanding confirmed on 07/30/2023 11:51:29 (ET). Electronically Signed: Melvin Chicas MD at 11:52 EST , ADDENDUM: 07/30/23 1159 IMPRESSION: 1. Chronic involutional changes of the brain. 2. Concern for stroke/positive symptomatology should be further evaluated with CT brain perfusion/CTA or MRI of the brain for further assessment. N.B. : The above Results were Read Back by Melvin Chicas MD to Blas Khoury MD, and understanding confirmed on 07/30/2023 11:51:29 (ET). Electronically Signed: Melvin Chicas MD at 11:52 EST , I was contacted by radiology at 1148. There is no abnormality noted on the CAT scan per Dr. Chicas. Management Discussion w/another healthcare provider: Hospitalist, Cook Mess, Radiologist (Spoke with Dr. Chicas radiologist regarding the unenhanced scan and the CTA of the head and neck. CT of the head and neck reveals no large vessel occlusion.) and Pharmacist (Contacted pharmacy regarding dose for TNK.) Treatment and Re-Evaluation Narrative: Patient's most recent NIH is an 8 which is an improvement. Stroke Documentation Questions Stroke Team Activated: Yes Reviewed Inclusion/Exclusion criteria: Yes IV Thrombolytic Administered: Yes No contraindications from thrombolytic administration: No Risks, Benefits, Alternatives Discussed: Yes Not given: Patient refusal: No (Patient gave verbal consent for administration of tenecteplase at 1151) Critical Care Time Critical Care Time: Yes Critical care time (excluding procedures): 30-74 minutes (History, physical, documentation, review of CAT scan, interpretation reviewed with radiologist, consultation with neurologist at [facility], discussion with admitting physician total time 33 minutes), Including time spent:, Discussing w/Patient &/or Family/Key Worker, Discussing w/Consultants, Arranging Admission or Transfer and - (Verbal consent for administration of TNK. Total time 33 minutes) Discharge Plan Triage Chief Complaint: Stroke Alert ED Provider: Blas Khoury Dx/Rx/DC Orders Clinical Impression: History of hypercholesterolemia, 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, Chronic interstitial lung disease Prescriptions: No Action oxybutynin chloride [Ditropan XL] 10 MG tablet extended release 24hr 20 mg PO BID Patient Comments: urinary signs and symptoms aspirin 325 MG tablet 325 mg PO DAILY@0800 Patient Comments: HEART HEALTH sertraline 100 MG tablet 200 mg PO DAILY Patient Comments: MENTAL HEALTH simvastatin 10 MG tablet 10 mg PO QHS Patient Comments: CHOLESTEROL LOWERING clopidogrel 75 MG tablet 75 mg PO DAILY Patient Comments: BLOOD THINNER prazosin [Minipress] 5 MG capsule 5 mg PO QHS Patient Comments: SLEEP epinephrine 0.3 MG syringe 0.3 mg IM X1 Patient Comments: BEE STINGS albuterol sulfate [Ventolin HFA] 1 INHALER inhaler 2 puff inhalation Q6H PRN PRN (Reason: Sob &/Or Wheezing) Patient Comments: BREATHING loratadine [Allergy Relief (loratadine)] 10 MG tablet 10 mg PO QHS Patient Comments: ALLERGIES budesonide-formoterol [Symbicort] 1 INHALER inhaler 1 puff inhalation BID Patient Comments: BREATHING trazodone 50 MG tablet 100 mg PO QHS Patient Comments: SLEEP oseltamivir [oseltamivir] 75 mg capsule 75 mg PO BID Qty: 10 0RF Primary Care Provider[facility] [facility] [Primary Care Provider] - Disposition Disposition: Acute Care Hospital [facility]
[2023-07-30] MEDS: 0.9% Saline Lock 10 ML Syringe IV ×2 (11:51→11:56)
[2023-07-30] MEDS: Tenecteplase 25 MG in Syringe 1 EACH 3600 MG IV (11:52)
[2023-07-30 11:55] LABS: Absolute Lymphocyte Count 1.14 X10^3/uL (0.83-4.51); Absolute Neutrophil Count 4.2 X10^3/uL (2.0-7.7); Basophil# 0.03 X10^3/uL; Basophil% 0.5 % (0-1); Eosinophil# 0.18 X10^3/uL; Hematocrit 37.2 % (40-54); Hemoglobin 12.4 g/dL (13.0-16.5); Lymphocyte # 1.14 X10^3/ul (0.83-4.51); Lymphocyte % 18.8 % (19-41); Mean Corp Hgb Conc 33.3 g/dL (32-36); Mean Corpuscular Hgb 30.2 pg (27.0-32.0); Mean Corpuscular Volume 90.7 fL (80-94); Mean Platelet Vol. 10.5 fl (6.2-12.0); Monocyte# 0.45 X10^3/uL; Monocyte% 7.4 % (0-10); NRBC Flagged by Analyzer 0 % (0-5); Neutrophil # 4.22 X10^3/uL (2.7-7.7); Neutrophil % 69.6 % (47-70); Platelet Count 112 K/mm3 (150-450); RBC Distribution Width CV 13.7 % (11.6-14.6); RBC Distribution Width SD 45.6 fl (35.1-43.9); White Blood Count 6.1 K/mm3 (4.4-11.0)
--- OUTSIDE RECORDS SUMMARY | 2023-07-30 11:55 | XMS RPT_ITS | CCD ---
Author Name Unknown Address [address] [facility] [address] [place] [address] Organization [facility] Care Team Providers Care Denial Resolution Specialist Name Role Phone Unknown, Pcp Unavailable Unavailable Piper Caceres Unavailable Jorge ROWE, DR WADE Mckeon Admitting Unavaila rodney ROWE, DR WADE Mckeon Primary Care Unavaila ble JAE, DR WADE Mckeon Attending Unavaila TEODORO Kyle DR Referring Unavailable TEODORO MG DR Primary Care Unavailable TEODORO MG DR Attending Unavailable TEODORO MG DR Admitting Unavailable HABERBERGER, NIC Lisseth Admitting Unavailable HABERBERGER, NIC M Primary Care Unavailable HABEREZE, NIC M Attending Unavailable ROBERT, DR LEDA Suggs Admitting Unavailable ROBERT, DR LEDA Suggs Primary Care Unavailable ROBERT, DR LEDA Suggs Attending Unavailable HABERBERGER, NIC M Admitting Unavailable HABERBERGER, NIC M Primary Care Unavailable ELISAEREZE, NIC M Attending Unavailable TEODORO MG DR Primary Care Unavailable TEODORO MG DR Attending Unavailable TEODORO MG DR Admitting Unavailable TEODORO MG DR Primary Care Unavailable TEODORO MG DR Attending Unavailable TEODORO MG DR Admitting Unavailable TEODORO MG DR Primary Care Unavailable TEODORO MG DR Attending Unavailable TEODORO MG DR Admitting Unavailable TEODORO MG DR Primary Care Unavailable TEODORO MG DR Attending Unavailable TEODORO MG DR Admitting Unavailable HECTOR, MARI PAC Admitting Unavailable HECTOR, MARI PAC Primary Care Unavailable YAZMIN YOUNGANNE PAC Attending Unavailable TEODORO MG DR Primary Care Unavailable TEODORO MG DR Attending Unavailable TEODORO MG DR Admitting Unavailable Allergies Allergy Classification Reported Allergen(s) Allergy Type Date of Onset Reaction(s) Facility Penicillins (antibiotic) (1 source) Penicillin Drug Allergy Angioedema [facility] (1 source) bee venom Drug allergy (disorder) [facility] (1 source) Penicillins Drug allergy (disorder) [facility] Problems Problem Classification Problem Date Documented Da te Episodic/Chronic Other aftercare (3 sources) Encounter for removal of sutures; Translations: [Encounter for removal of sutures] Onset: 02-23-2021 Episodic Unclassified (2 sources) FINGER LAC - AT HOME 10-21-2020 Results Test Name Value Interpretation Reference Range Facil ity Vital Signs Date Time Vital Sign Value Performing Clinician Faci lity 10-21-2020 17:25-0400 Body height 203.2 cm Pcp Unknown [facility] 10-21-2020 17:25-0400 Body temperature 98.6 [degF] Pcp Unknown [facility] 10-21-2020 17:25-0400 Body weight 108 kg Pcp Unknown [facility] 10-21-2020 17:25-0400 Heart rate 81 /min Pcp Unknown [facility] 10-21-2020 17:25-0400 Respiratory rate 18 /min Pcp Unknown [facility] 10-21-2020 17:25-0400 SaO2% (BldA) [Mass fraction] 99 % Pcp Unknown [facility] 10-21-2020 17:25-0400 Systolic blood pressure 132 mm[Hg] Pcp Unknown [facility] Encounters Encounter Date Encounter Type Care Provider Facility Start: 04-29-2021 ambulatory TEODORO MG [facility] Start: 04-28-2021 End: 04-28-2021 ambulatory TEODORO MG [facility] Start: 03-30-2021 End: 03-31-2021 ambulatory TEODORO MG [facility] Start: 03-26-2021 End: 03-26-[address] WADE ROWE [facility] Start: 03-26-2021 End: 03-26-2021 Encounter for preprocedural laboratory examination DR WADE ROWE [facility] Start: 03-17-2021 End: 03-17-2021 ambulatory TEODORO MG [facility] Start: 03-10-2021 End: 03-10-2021 ambulatory MARI BRAVO [facility] Start: 02-23-2021 End: 02-23-2021 Emergency department patient visit NIC Montanez GLADYS [facility] Start: 02-17-2021 End: 02-17-2021 Emergency department patient visit DR LEDA JONES [facility] Start: 02-07-2021 End: 02-07-2021 Emergency department patient visit NIC Lisseth GLADYS [facility] Start: 01-26-2021 ambulatory TEODORODENISE MG Nakul [facility] Start: 12-31-2020 End: 12-31-2020 ambulatory TEODORODENISE MG [facility] Start: 10-21-2020 End: 10-21-2020 Emergency department patient visit Piper Montano Emergency Consult 02 Plan of Treatment Date Care Activity Detail Author Start: 10-21-2020 End: 10-22-2021 [facility] enter Payers Date Payer Category Payer Unknown [id number] 1945 Unknown [id number] 1945 Unknown [id number] 1945 Unknown [id number] 1945 Unknown [id number] [id number] 1945 Unknown [id number] [id number] 1945 Unknown [id number] [id number] 1945 Unknown [id number] [id number] 1945 Unknown [id number] [id number] 1945 Unknown [id number] [id number] 1945 Unknown [id number] Unknown MEDICARE HMO\MEDICARE HMO Medicare [id number] Social History Date Type Detail Facility [facility] Start: 10-21-2020 Occasional tobacco smok er [facility] Discharge summary note 04-09-2021 Note Date & Type Note Facility 04-09-2021 Note [facility] DISCHARGE SUMMARY NAME ACCOUNT SEX AGE ADMIT DISCHARGE PT MED. RECORD# NUMBER DATE DATE TYPE TONY, [id number] M 75 03/30/21 2 ANANDA Miramontes [id number] ROOM: [facility] DATE OF : 1945 ATTENDING PHYSICIAN: Mari Young PROGRESS NOTE/DISCHARGE SUMMARY ATTENDING ORTHOPEDIC SURGEON: Dr. Teodoro Mg. DATE OF ADMISSION: March 30, 2021 ESTIMATED DATE OF DISCHARGE: March 31, 2021 ADMITTING DIAGNOSES: 1. Left knee primary osteoarthritis. 2. History of stroke. 3. Sleep apnea. FINAL DIAGNOSES: 1. Left knee primary osteoarthritis, status post left total knee arthroplasty. 2. History of stroke. 3. Sleep apnea. HOSPITAL COURSE: The patient has an ongoing history of left knee pain. After failing conservative measures, the patient opted to proceed with a left total knee replacement and underwent the above-stated procedure yesterday. He did very well. The pain has been well managed in the perioperative period. He currently denies chest pain, shortness of breath, dizziness, or calf pain. His plan is for discharge to home later today, and he will work with outpatient physical therapy. PHYSICAL EXAMINATION: Vitals: Temperature is 98.1, pulse 66, respirations 18, blood pressure 113/58, and spO2 of 92% on 2 liters nasal cannula. The patient is alert and oriented x3, in no acute distress at rest, breathing easily without respiratory distress. Inspection of the left knee reveals a dry waterproof dressing without active drainage, erythema, warmth or signs of infection. Negative Homans bilaterally without signs of DVT. The patient is able to actively plantar and dorsiflex the bilateral feet against resistance. Neurovascularly intact. Sensation is intact to light touch. Pedal pulses are present and equal bilaterally. DIAGNOSTIC DATA: Postoperative x-rays were discussed and reviewed with Page 1 of 2 ANANDA JIMENEZ Discharge Summary ANANDA JIMENEZ : 1945 Teodoro Mg and are consistent with a cemented left total knee replacement. The prostheses are in good position without evidence of hardware failure or loosening. Laboratory results were reviewed. Blood glucose is elevated at 152. White blood cell count is 10.1, hemoglobin 10.7, hematocrit 30.9, and platelet count 128,000. ASSESSMENT/PLAN: 1. Status post left total knee arthroplasty, postoperative day #1. 2. Continue Percocet 5/325 mg one or two p.o. every 4 hours p.r.n. pain. 3. Deep venous thrombosis prophylaxis with bilateral TEDs and SCDs. Resume preoperative dose of Plavix and start aspirin 81 mg twice daily for blood clot prevention. 4. Begin PT/OT and weightbearing as tolerated on the left lower extremity with a walker. 5. Drop in hemoglobin and hematocrit with thrombocytopenia, asymptomatic, likely a combination of hemodilution and blood loss anemia. Continue to monitor. 6. Encouraged incentive spirometry. 7. Continue discharge planning with case management. We will plan for discharge with outpatient physical therapy. 8. Continue postoperative medical management per the hospitalist group. 9. The patient is orthopedically stable and okay for discharge to home today if cleared medically, having adequate pain control, and doing well with physical therapy. We will plan to follow up with him in the office in 2 weeks for reassessment with x-ray and staple removal. Dictated By: Mari Young PA-C 03/31/21 07:33 JOB #: [id number] Transcribed By: [email or web address] 03/31/21 08:14 Electronically signed by: E-sign Mari BARKER 04/07/21 07:42 Page 2 of 2 ANANDA JIMENEZ Discharge Summary [facility] Clinical Note 03-31-2021 Note Date & Type Note Facility 03-31-2021 Note [facility] CONSULTATION REPORT NAME ACCOUNT SEX AGE ADMIT DISCHARGE PT MED. RECORD# NUMBER DATE DATE TYPE TONY [id number] M 75 03/30/2021 2 ANANDA Miramontes [id number] ROOM: [id number] DATE OF : 1945 DICTATING PHYSICIAN: Rea Chavez DATE OF CONSULTATION: March 30, 2021 REASON FOR CONSULTATION: Postoperative medical management. CONSULTING PHYSICIAN: Dr. Teodoro Mg. HISTORY OF PRESENT ILLNESS: This is a 75-year-old male with a past medical history significant for chronic lung disease, heart burn, and mini strokes, according to his , he has had them on several occasions, and depression. He also has significant degenerative joint disease. He has had multiple surgeries in the past. His left knee orthopedics tried conservative measures and eventually he had left total knee replacement today without any apparent complications. Upon evaluation, he was mildly lethargic postoperatively, and his did assist with medical history as well. PAST MEDICAL HISTORY: (1) Degenerative joint disease. (2) History of CVA. His states he has had multiple mini strokes with no lasting symptoms. (3) Depression. (4) GERD. (5) History of meniscal tear. PAST SURGICAL HISTORY: (1) Appendectomy in 1964. (2) Video arthroscopy partial meniscectomy 2006 right knee. (3) Left foot surgery in 2008. (4) Left elbow surgery February 2015, Dr. Sander Nicholson, however, the patient does not recall this nor does his . It is in his records. (5) Left shoulder surgery. (6) Left knee surgery today. CURRENT MEDICATIONS: Albuterol inhaler every 6 hours p.r.n., enteric-coated aspirin 325 mg daily, Pulmicort 2 puffs twice daily, oxybutynin 5 mg twice daily, pantoprazole 20 mg daily, Plavix 75 mg daily, prazosin 5 mg 1 tablet daily, Simvastatin 20 mg daily, Trazodone 50 mg at bedtime, Zoloft 200 mg daily. ALLERGIES: (1) Penicillin. He states he took it as a young child and it caused swelling and difficulty breathing. However, he has been able to take Augmentin since. (2) Bee stings. FAMILY HISTORY: Father of unknown cause and unknown age. Mother at age 49. She had atherosclerotic disease. Page 1 of 3 ANANDA JIMENEZ Mrp Controller Report ANANDA JIMENEZ : 1945 SOCIAL HISTORY: He is . He lives at home with his spouse. He started smoking in the service. He quit in 1970. He uses chewing tobacco. No alcohol or illicit drug use. 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 He does have one daughter and great-grandchild. REVIEW OF SYSTEMS: He denies any headaches, acute visual changes. No recent weight changes, fever or chills. No chest pain. He does get some postnasal drip and dry cough. This is due to his allergies, nothing worsened recently. No bowel or bladder changes. PHYSICAL EXAMINATION: GENERAL: The patient was lying in bed in no acute distress. He is alert, slightly tired, but he is able to answer questions. VITAL SIGNS: Blood pressure 113/73, heart rate 55, respirations 16, temperature 97.4, oxygen saturation 91% on room air, and weight 227 pounds. BMI is 26.92. HEENT: Head: Normocephalic and atraumatic. PERRLA. Conjunctivae not injected. External pinnae: No lesions. Nares are patent. Mouth and throat: No erythema. No exudates. NECK: Neck is supple. No JVD. LUNGS: Normal respiratory effort, equal lung expansion, mildly diminished in the bases, but clear. HEART: Regular rate and rhythm. ABDOMEN: Positive bowel sounds, soft and nontender. EXTREMITIES: Free of pitting edema. Pulses palpable in the dorsalis pedis bilaterally. NEUROLOGIC: He is able to answer most questions. He is sleepy, but oriented. Speech is clear. He is not anxious or agitated. He appears comfortable. ASSESSMENT/RECOMMENDATIONS: 1. Degenerative joint disease, status post left total knee arthroplasty, followed by orthopedic. He is currently stable, appears comfortable. He is on aspirin for deep venous thrombosis prophylaxis and Percocet for pain medications. He is on postoperative protocol. 2. Chronic obstructive pulmonary disease, appears stable at present. We will continue his inhalers as at home. 3. Status post cerebrovascular accident. He is on a statin and aspirin. Blood pressure is controlled. 4. Depression, on Zoloft and Desyrel. We will continue as at home. 5. All other medical conditions appear stable at present. Thank you for the consultation. We will be glad to follow with you. Dictated By: Rea Chavez PA-C 03/30/2021 13:01 JOB #: [id number] Transcribed By: [email or web address] 03/30/2021 13:40 Electronically signed by: Page 2 of 3 ANANDA JIMENEZ Mrp Controller Report ANANDA JIMENEZ : 1945 E-SIGN: REA CHAVEZ PA-C 03/31/21 12:14 Page 3 of 3 ANANDA JIMENEZ Mrp Controller Report [facility] Summary Purpose Family History No Family History Records FoundNo Family History Records FoundNo Family History Records FoundNo Family History Records FoundNo Family History Records Found Advance Directives No Advanced Directives Records FoundNo Advanced Directives Records FoundNo Advanced Directives Records FoundNo Advanced Directives Records FoundNo Advanced Directives Records Found Additional Source Comments (unrecognized sect ion and content) No Status Records FoundNo Status Records FoundNo Status Records FoundNo Status Records FoundNo Status Records Found INFORMATION SOURCE (unrecogn ized section and content) DATE CREATED AUTHOR AUTHOR'S ORGANIZ ATION 10/26/2020 [facility] DATE CREATED AUTHOR AUTHOR'S ORGANIZ ATION 03/19/2021 [facility] DATE CREATED AUTHOR AUTHOR'S ORGANIZ ATION 04/02/2021 [facility] ([place]) DATE CREATED AUTHOR AUTHOR'S ORGANIZ ATION 04/30/2021 [facility] <item> Privacy Markings (unrecogniz ed section and content) Section Author: Olga Martin PROHIBITION ON REDISCLOSURE OF CONFIDENTIAL INFORMATION This notice accompanies a disclosure of information concerning a client made to you with the consent of such client. FOR RECORDS PERTAINING TO PATIENTS WHO ARE OR HAVE BEEN ENROLLED IN A CHEMICAL DEPENDENCY/SUBSTANCEABUSE PROGRAM, SOME INFORMATION MAY BE OMITTED. This clinical summary was aggregated from multiple sources. Caution should be exercised in using it in the provision of clinical care. This summary normalizes information from multiple sources, and as a consequence, information in this document may materially change the coding, format and clinical context of patient data. In addition, data may be omitted in some cases. CLINICAL DECISIONS SHOULD BE BASED ON THE PRIMARY CLINICAL RECORDS. [facility]. provides no warranty or guarantee of the accuracy or completeness of information in this document.
[2023-07-30] MEDS: 0.9% Normal Saline (1000mL) 1,000 ML 100 ML IV ×2 (11:56→21:23)
[2023-07-30 12:10] LABS: Prothrombin Time (Protime)PT. 13.6 SECONDS (11.7-14.9)
[2023-07-30 12:11] LABS: Anion Gap 3 (5-15); BUN 23 mg/dL (7-18); BUN/Creat Ratio 20.9 RATIO (10-20); Calcium,Total 8.7 mg/dL (8.5-10.1); Chloride 109 mmol/L (98-107); EST Glomerular Filtration Rate 69 mL/min (>60); Est Glom Filt Rate - Afr Amer 84 mL/min (>60); Estimated Creatinine Clearance 77.58 ml/min; Glucose 157 mg/dL (74-106); Potassium 4.4 mmol/L (3.5-5.1); Sodium Level 138 mmol/L (136-145); Troponin-I HS 5 pg/mL (3.0-78.0)
[2023-07-30 12:13] LABS: Partial Thromboplast Time 29.9 Seconds (24.1-36.2)
--- OUTSIDE RECORDS SUMMARY | 2023-07-30 12:44 | XMS RPT_ITS | CCD ---
Author Name Unknown Address [address] [place] [address] Organization [facility] Care Team Providers Care Recreation Teacher Name Role Phone Unknown, Pcp Unavailable Unavailable Piper Caceres Unavailable Jorge ROWE, DR WADE Mckeon Admitting Unavaila rodney ROWE, DR WADE Mckeon Primary Care Unavaila rodney ROWE, DR WADE Mckeon Attending Unavaila TEODORO Kyle DR Referring Unavailable TEODORO MG DR Primary Care Unavailable TEODORO MG DR Attending Unavailable TEODORO MG DR Admitting Unavailable HABEREZE, NIC M Admitting Unavailable HABERBERGER, NIC M Primary Care Unavailable HABEREZE, NIC M Attending Unavailable ROBERT, DR LEDA Suggs Admitting Unavailable ROBERT, DR LEDA Suggs Primary Care Unavailable ROBERT, DR LEDA Suggs Attending Unavailable HABERBERGER, NIC M Admitting Unavailable HABERBERGER, NIC M Primary Care Unavailable HABEREZE, NIC M Attending Unavailable TEODORO MG DR [...] (antibiotic) (1 source) Penicillin Drug Allergy Angioedema [facility] (1 source) bee venom Drug allergy (disorder) [facility] (1 source) Penicillins Drug allergy (disorder) [facility] Problems Problem Classification Problem Date [...] 17:25-0400 Body height 203.2 cm Pcp Unknown [facility] 10-21-2020 17:25-0400 Body temperature 98.6 [degF] Pcp Unknown [facility] 10-21-2020 17:25-0400 Body weight 108 kg Pcp Unknown [facility] 10-21-2020 17:25-0400 Heart rate 81 /min Pcp Unknown [facility] 10-21-2020 17:25-0400 Respiratory rate 18 /min Pcp Unknown [facility] 10-21-2020 17:25-0400 SaO2% (BldA) [Mass fraction] 99 % Pcp Unknown [facility] 10-21-2020 17:25-0400 Systolic blood pressure 132 mm[Hg] Pcp Unknown [facility] Encounters Encounter Date Encounter Type Care Provider Facility Start: 04-29-2021 ambulatory TEODORO MG [facility] Start: 04-28-2021 End: 04-28-2021 ambulatory TEODORO MG [facility] Start: 03-30-2021 End: 03-31-2021 ambulatory TEODORO MG [facility] Start: 03-26-2021 End: 03-26-[address] WADE ROWE [facility] Start: 03-26-2021 End: 03-26-2021 Encounter for preprocedural laboratory examination DR WADE ROWE [facility] Start: 03-17-2021 End: 03-17-2021 ambulatory TEODORO MG [facility] Start: 03-10-2021 End: 03-10-2021 ambulatory MARI CAMPOSY [facility] Start: 02-23-2021 End: 02-23-2021 Emergency department patient visit NIC PÉREZSUKHDEV [facility] Start: 02-17-2021 End: 02-17-2021 Emergency department patient visit DR LEDA JONES [facility] Start: 02-07-2021 End: 02-07-2021 Emergency department patient visit NIC Lisseth GLADYS [facility] Start: 01-26-2021 ambulatory TEODORODENISE MG Nakul [facility] Start: 12-31-2020 End: 12-31-2020 ambulatory TEODORODENISE MG [facility] Start: 10-21-2020 End: 10-21-2020 Emergency department patient visit Piper Montano Emergency Consult 02 Plan of Treatment Date Care Activity Detail Author Start: 10-21-2020 End: 10-22-2021 [facility] enter Payers Date Payer Category Payer Unknown [id number] 1945 Unknown [id number] 1945 Unknown [id number] 1945 Unknown [id number] [id number] 1945 Unknown [id number] 1945 Unknown [id number] [id number] 1945 Unknown [id number] [id number] 1945 Unknown [id number] [id number] 1945 Unknown [id number] 1945 Unknown [id number] 1945 Unknown [id number] Unknown MEDICARE HMO\MEDICARE HMO Medicare [id number] Social History Date Type Detail Facility [facility] Start: 10-21-2020 Occasional tobacco smok er [facility] Discharge summary note 04-09-2021 Note Date & Type Note Facility 04-09-2021 Note [facility] DISCHARGE SUMMARY NAME ACCOUNT SEX AGE ADMIT DISCHARGE PT MED. RECORD# NUMBER DATE DATE TYPE TONY, [id number] M 75 03/30/21 2 ANANDA Miramontes [id number] ROOM: [facility] DATE OF : 1945 ATTENDING PHYSICIAN: Mari [...] Mari Young PA-C 03/31/21 07:33 JOB #: [id number] Transcribed By: [email or web address] 03/31/21 08:14 Electronically signed by: E-sign Mari BARKER 04/07/21 07:42 Page 2 of 2 ANANDA JIMENEZ Discharge Summary [facility] Clinical Note 03-31-2021 Note Date & Type Note Facility 03-31-2021 Note [facility] CONSULTATION REPORT NAME ACCOUNT SEX AGE ADMIT DISCHARGE PT MED. RECORD# NUMBER DATE DATE TYPE TONY [id number] M 75 03/30/2021 2 ANANDA Miramontes [id number] ROOM: [facility] DATE OF : 1945 DICTATING PHYSICIAN: Rea [...] disease. Page 1 of 3 ANANDA JIMENEZ Aviation Metalsmith Report ANANDA JIMENEZ : 1945 SOCIAL HISTORY: He is . He lives at home with his spouse. He started smoking in the service. He quit in 1970. He uses chewing tobacco. No alcohol or illicit drug use. 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 He does have one daughter and great-grandchild. [...] Rea Chavez PA-C 03/30/2021 13:01 JOB #: [id number] Transcribed By: mayito 03/30/2021 13:40 Electronically signed by: Page 2 of 3 ANANDA JIMENEZ [employer] Report ANANDA JIMENEZ : 1945 E-SIGN: REA CHAVEZ PA-C 03/31/21 12:14 Page 3 of 3 ANANDA JIMENEZ [employer] Report [facility] Summary Purpose Family History No Family [...] DATE CREATED AUTHOR AUTHOR'S ORGANIZ ATION 10/26/2020 [facility] DATE CREATED AUTHOR AUTHOR'S ORGANIZ ATION 03/19/2021 [facility] DATE CREATED AUTHOR AUTHOR'S ORGANIZ ATION 04/02/2021 [facility] ([place]) DATE CREATED AUTHOR AUTHOR'S ORGANIZ ATION 04/30/2021 [facility] <item> Privacy Markings (unrecogniz ed section and [...] BE BASED ON THE PRIMARY CLINICAL RECORDS. [facility]. provides no warranty or guarantee of the accuracy or completeness of information in this document.
--- OUTSIDE RECORDS SUMMARY | 2023-07-30 12:46 | XMS RPT_ITS | CCD ---
Author Name Unknown Address [address] [place] [address] Organization [facility] Care Team Providers Care Pharmacy Customer Care Specialist Name Role Phone Unknown, Pcp Unavailable Unavailable Ppier Caceres Unavailable Jorge ROWE, DR WADE Mckeon [...] (antibiotic) (1 source) Penicillin Drug Allergy Angioedema [facility] (1 source) bee venom Drug allergy (disorder) [facility] Repository (1 source) Penicillins Drug allergy (disorder) [facility] Repository Problems Problem Classification Problem Date Documented [...] 17:25-0400 Body height 203.2 cm Pcp Unknown [facility] 10-21-2020 17:25-0400 Body temperature 98.6 [degF] Pcp Unknown [facility] 10-21-2020 17:25-0400 Body weight 108 kg Pcp Unknown [facility] 10-21-2020 17:25-0400 Heart rate 81 /min Pcp Unknown [facility] 10-21-2020 17:25-0400 Respiratory rate 18 /min Pcp Unknown [facility] 10-21-2020 17:25-0400 SaO2% (BldA) [Mass fraction] 99 % Pcp Unknown [facility] 10-21-2020 17:25-0400 Systolic blood pressure 132 mm[Hg] Pcp Unknown [facility] Encounters Encounter Date Encounter Type Care Provider Facility Start: 04-29-2021 ambulatory TEODORO MG [facility] Start: 04-28-2021 End: 04-28-2021 ambulatory TEODORO MG [facility] Start: 03-30-2021 End: 03-31-2021 ambulatory TEODORO MG [facility] Start: 03-26-2021 End: 03-26-[address] WADE ROWE [facility] Start: 03-26-2021 End: 03-26-2021 Encounter for preprocedural laboratory examination DR WADE ROWE [facility] Start: 03-17-2021 End: 03-17-2021 ambulatory TEODORO MG [facility] Start: 03-10-2021 End: 03-10-2021 ambulatory MARI CAMPOSY [facility] Start: 02-23-2021 End: 02-23-2021 Emergency department patient visit NIC PÉREZSUKHDEV [facility] Start: 02-17-2021 End: 02-17-2021 Emergency department patient visit DR LEDA JONES [facility] Start: 02-07-2021 End: 02-07-2021 Emergency department patient visit NIC Lisseth GLADYS [facility] Start: 01-26-2021 ambulatory TEODORODENISE MG [facility] Start: 12-31-2020 End: 12-31-2020 ambulatory TEODORODENISE MG [facility] Start: 10-21-2020 End: 10-21-2020 Emergency department patient visit [facility] 02 Plan of Treatment Date Care Activity Detail Author Start: 10-21-2020 End: 10-22-2021 [facility] enter Payers Date Payer Category Payer Unknown [id number] 1945 Unknown [id number] 1945 Unknown [id number] 1945 Unknown [id number] 1945 Unknown [id number] 1945 Unknown [id number] 1945 Unknown [id number] 1945 Unknown [id number] 1945 Unknown [id number] 1945 Unknown [id number] 1945 Unknown [id number] Unknown MEDICARE HMO\MEDICARE HMO Medicare [id number] Social History Date Type Detail Facility [facility] Start: 10-21-2020 Occasional tobacco smok er [facility] Discharge summary note 04-09-2021 Note Date & Type Note Facility 04-09-[address] [facility] DISCHARGE SUMMARY NAME ACCOUNT SEX AGE ADMIT DISCHARGE PT MED. RECORD# NUMBER DATE DATE TYPE TONY, [id number] M [id number] 03/30/21 2 ANANDA Miramontes [id number] ROOM: [facility] DATE OF : 1945 ATTENDING PHYSICIAN: Mari [...] Mari Young PA-C 03/31/21 07:33 JOB #: [id number] Transcribed By: [email or web address] 03/31/21 08:14 Electronically signed by: E-sign Mari BARKER 04/07/21 07:42 Page 2 of 2 ANANDA JIMENEZ Discharge Summary [facility] Clinical Note 03-31-2021 Note Date & Type Note Facility 03-31-[address] [facility] CONSULTATION REPORT NAME ACCOUNT SEX AGE ADMIT DISCHARGE PT MED. RECORD# NUMBER DATE DATE TYPE TONY [id number] M 75 03/30/2021 2 ANANDA Miramontes [id number] ROOM: [facility] DATE OF : 1945 DICTATING PHYSICIAN: Rea [...] disease. Page 1 of 3 ANANDA JIMENEZ Billing Checker Report ANANDA JIMENEZ : 1945 SOCIAL HISTORY: He is . He lives at home with his spouse. He started smoking in the service. He quit in 1970. He uses chewing tobacco. No alcohol or illicit drug use. 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 He does have one daughter and great-grandchild. [...] Rea Chavez PA-C 03/30/2021 13:01 JOB #: [id number] Transcribed By: [email or web address] 03/30/2021 13:40 Electronically signed by: Page 2 of 3 ANANDA JIMENEZ Billing Checker Report ANANDA JIMENEZ : 1945 E-SIGN: REA CHAVEZ PA-C 03/31/21 12:14 Page 3 of 3 ANANDA JIMENEZ Billing Checker Report [facility] Summary Purpose Family History No Family History [...] DATE CREATED AUTHOR AUTHOR'S ORGANIZ ATION 10/26/2020 [facility] DATE CREATED AUTHOR AUTHOR'S ORGANIZ ATION 03/19/2021 [facility] DATE CREATED AUTHOR AUTHOR'S ORGANIZ ATION 04/02/2021 [facility] ([place]) DATE CREATED AUTHOR AUTHOR'S ORGANIZ ATION 04/30/2021 [facility] <item> Privacy Markings (unrecogniz ed section and [...] BE BASED ON THE PRIMARY CLINICAL RECORDS. [facility]. provides no warranty or guarantee of the accuracy or completeness of information in this document.
--- NOTE | 2023-07-30 13:02 | NURSING ---
[facility] middle cerebral artery stroke
--- NOTE | 2023-07-30 13:13 | NURSING ---
ANDREWSS completed w/ ORE ROASTERESTEBAN Wright
--- NOTE | 2023-07-30 13:27 | NURSING ---
CALLED [facility] AND LEFT ALL THE INFO THEY ASKED
[2023-07-30] MEDS: Lidocaine Jelly 2% 20 ML Syringe (URO-JET) 1 APPLIC TOPICAL (14:30)
--- NOTE | 2023-07-30 15:58 | HP.PCM.HOS_ITS ---
HPI - General General Date of Admission: 07/30/23 HPI Narrative ANANDA JIMENEZ, is a 78 M who presents presents to the hospital for left facial droop as well as left arm and leg weakness. Last known well was in the time for thrombolytics and he was given TNK at the direction of [facility] neurology. He was then transferred to the ICU with rapid improvement in his symptoms. Prior to TNK being given he was unable to move his left arm and now he can lift it off the bed against gravity. He has had multiple mini strokes in the past but is also had fairly severe stroke as well. He is on aspirin and Plavix but he is not on any anticoagulant. My evaluation occurred after the TNK was given and he is denying any headache or visual disturbance and there is no worsening in his NIH is currently. He is complaining of penile pain secondary to traumatic Mills insertion though urine does not appear significantly bloody at this time. [facility] Medical History PTSD (post-traumatic stress disorder) Stroke TIA (transient ischemic attack) Home Medications albuterol sulfate 90 mcg/actuation aerosol inhaler (Ventolin HFA) 2 puff inhalation Q6H PRN PRN Sob &/Or Wheezing 12/05/15 [History Last Taken 12/05/15] aspirin 325 mg tablet 325 mg PO DAILY@0800 stroke prevention 12/05/15 [History Last Taken 12/05/15] clopidogrel 75 mg tablet 75 mg PO DAILY stroke prevention 12/05/15 [History Last Taken 12/04/15] epinephrine 0.3 mg/0.3 mL injection, auto-injector 0.3 mg IM X1 bee stings 12/05/15 [History Last Taken Unknown] loratadine 10 mg tablet (Allergy Relief (loratadine)) 10 mg PO QHS allergies 12/05/15 [History Last Taken 12/04/15] prazosin 5 mg capsule (Minipress) 5 mg PO QHS alpha elicia 12/05/15 [History Last Taken 12/04/15] sertraline 100 mg tablet 200 mg PO DAILY anxiety 12/05/15 [History Last Taken 12/05/15] ferrous sulfate 325 mg (65 mg iron) tablet (FeroSul) 325 mg PO DAILY supplement 07/30/23 [History Last Taken Unknown] fluticasone 250 mcg-salmeterol 50 mcg/dose blistr powdr for inhalation 1 inh inhalation BID shortness of breath 07/30/23 [History Last Taken Unknown] gabapentin 300 mg capsule 300 mg PO TID neuropathic pain 07/30/23 [History Last Taken Unknown] metformin 500 mg tablet 500 mg PO BID diabetes 07/30/23 [History Last Taken Unknown] pantoprazole 20 mg tablet,delayed release 20 mg PO DAILY stomach 07/30/23 [History Last Taken Unknown] simvastatin 20 mg tablet 20 mg PO QHS cholesterol 07/30/23 [History Last Taken Unknown] tizanidine 2 mg capsule 2 mg PO BID PRN muscle spasm 07/30/23 [History Last Taken Unknown] trospium 20 mg tablet 20 mg PO BID urinary antispasmodic 07/30/23 [History Last Taken Unknown] Allergy/AdvReac Type Severity Reaction Status Date / Time penicillin G Allergy Unknown Verified 07/30/23 11:46 venom-honey bee Allergy Unknown Verified 07/30/23 11:46 [bee venom (honey bee)] venom-wasp [wasp venom] Allergy Unknown Verified 07/30/23 11:46 Family History (Updated 07/30/23 @ 16:[address] Dylon Velázquez MD) Other Cancer Surgical History Hx of total knee replacement Social History Smoking Status: Former smoker ROS Constitutional Constitutional: Denies chills, fatigue, fever(s) or malaise Eyes Eyes: Denies blurry vision ENT HEENT: Denies headache(s) or nasal discharge Cardiovascular Cardiovascular: Denies chest pain, dyspnea on exertion or syncope Respiratory/Chest Respiratory/Chest: Denies cough, shortness of breath at rest or shortness of breath with exertion Gastrointestinal Gastrointestinal: Denies constipation, diarrhea, nausea or vomiting Genitourinary Genitourinary: Denies dysuria Neurologic Neurologic: Reports abnormal speech, focal weakness and numbness; Denies tremor(s) Psychiatric Psychiatric: Denies anxiety or depression Vital Signs Vital Signs Vital Signs: 07/30/23 11:39 07/30/23 11:44 07/30/23 11:48 Temperature 97.3 F L Temperature Source Oral Pulse Rate 62 Respiratory Rate 20 H Blood Pressure 142/78 H Blood Pressure Mean 99 Blood Pressure Source Blood Pressure Position Blood Pressure Location Pulse Ox 97 Oxygen Delivery Method Room Air Room Air 07/30/23 11:52 07/30/23 11:52 07/30/23 11:36 Temperature 97.4 F L Temperature Source Temporal Pulse Rate 67 63 Respiratory Rate 19 H 18 Blood Pressure 142/78 H 134/56 H 142/78 H Blood Pressure Mean 82 99 Blood Pressure Source Monitor Blood Pressure Position Semi-Fowlers Blood Pressure Location Left Arm Pulse Ox 97 97 Oxygen Delivery Method Room Air Room Air 07/30/23 11:36 07/30/23 12:11 07/30/23 12:26 Temperature 97.3 F L 98.3 F Temperature Source Temporal Temporal Pulse Rate 65 65 61 Respiratory Rate 19 H 26 H 16 Blood Pressure 142/78 H 125/71 H 131/71 H Blood Pressure Mean 99 89 91 Blood Pressure Source Monitor Blood Pressure Position Semi-Fowlers Semi-Fowlers Blood Pressure Location Left Arm Left Arm Pulse Ox 98 97 97 Oxygen Delivery Method Room Air Room Air Room Air 07/30/23 12:33 07/30/23 12:41 07/30/23 13:00 Temperature 98.2 F 98.3 F Temperature Source Temporal Pulse Rate 59 L 62 60 Respiratory Rate 15 17 17 Blood Pressure 131/71 H 126/70 H Blood Pressure Mean 91 88 Blood Pressure Source Monitor Monitor Blood Pressure Position Semi-Fowlers Supine Blood Pressure Location Left Arm Left Arm Pulse Ox 97 95 94 Oxygen Delivery Method Room Air Room Air 07/30/23 13:15 07/30/23 13:45 07/30/23 14:00 Temperature 98.2 F 98.2 F 98.2 F Temperature Source Core Core Core Pulse Rate 56 L 59 L 58 L Respiratory Rate 13 15 20 H Blood Pressure 115/71 128/69 H 112/69 Blood Pressure Mean 85 88 83 Blood Pressure Source Monitor Monitor Monitor Blood Pressure Position Supine Supine Supine Blood Pressure Location Left Arm Left Arm Left Arm Pulse Ox 97 97 95 Oxygen Delivery Method Room Air Room Air Room Air 07/30/23 14:30 07/30/23 15:00 07/30/23 15:30 Temperature 98.1 F 98.0 F 98.1 F Temperature Source Core Core Core Pulse Rate 60 56 L 57 L Respiratory Rate 18 15 19 H Blood Pressure 117/67 118/70 114/97 H Blood Pressure Mean 83 86 102 Blood Pressure Source Monitor Monitor Monitor Blood Pressure Position Supine Supine Supine Blood Pressure Location Left Arm Left Arm Left Arm Pulse Ox 96 97 97 Oxygen Delivery Method Room Air Room Air Room Air 07/30/23 13:30 Temperature 98.2 F Temperature Source Core Pulse Rate 59 L Respiratory Rate 18 Blood Pressure 112/68 Blood Pressure Mean 82 Blood Pressure Source Monitor Blood Pressure Position Supine Blood Pressure Location Left Arm Pulse Ox 97 Oxygen Delivery Method Room Air Weight Weight: 228 lb 2.855 oz Body Mass Index (BMI) 25.0 Physical Exam Narrative General: Alert, Oriented x3, Cooperative, No apparent distress HEENT: Atraumatic, PERRLA, EOMI, Normocephalic Oral: Moist Mucosa Neck: Supple, No JVD Lungs: Diminished, Normal air movement, No rhonchi, No wheeze, No rales Cardiovascular: Regular rate, Regular Rhythm, Normal S1, Normal S2, No murmurs Abdomen: Soft, Non Tender, Non-Distended, No Hepato-splenomegaly Extremities: No edema, Capillary Refill Less than 3 Seconds Skin: No rashes, No breakdown : Mills in place with some leakage and bleeding he is having significant pain though there is urine in the Mills Musculoskeletal: No Tenderness to Palpation of Joints or Extremities Neurological: Some aphasia, with left arm and leg weakness though improved from admission, NIH of 6 Psych/Mental Status: Normal Affect, Appropriate Results Lab / Micro Data 07/30/23 11:45 07/30/23 11:45 Labs: Laboratory Results - last 24 hr 07/30/23 11:45: WBC 6.1, RBC 4.10 L, Hgb 12.4 L, Hct 37.2 L, MCV 90.7, MCH 30.2, MCHC 33.3, RDW Std Deviation 45.6 H, RDW Coeff of Rafita 13.7, Plt Count 112 L, MPV 10.5, Immature Gran % (Auto) 0.700, Neut % (Auto) 69.6, Lymph % (Auto) 18.8 L, [place] % (Auto) 7.4, Eos % (Auto) 3.0, Baso % (Auto) 0.5, Absolute Neuts (auto) 4 .2, Absolute Lymphs (auto) 1.14, Nucleated RBC % 0, PT 13.6, INR 1.0, APTT 29.9, Sodium 138, Potassium 4.4, Chloride 109 H, Carbon Dioxide 26.0, Anion Gap 3 L, BUN 23 H, Creatinine 1.10, Estim Creat Clear Calc 77.58, Est GFR (MDRD) Af Amer 84, Est GFR (MDRD) Non-Af 69, BUN/Creatinine Ratio 20.9 H, Glucose 157 H, Calcium 8.7, Troponin I High Sens 5 Imaging Radiology Impression Brain CT 07/30/23 11:36 IMPRESSION: 1. Chronic involutional changes of the brain. 2. Concern for stroke/positive symptomatology should be further evaluated with CT brain perfusion/CTA or MRI of the brain for further assessment. N.B. : The above Results were Read Back by Melvin Chicas MD to Blas Khoury MD, and understanding confirmed on 07/30/2023 11:51:29 (ET). Electronically Signed: Melvin Chicas MD at 11:52 EST , ADDENDUM: 07/30/23 1159 IMPRESSION: 1. Chronic involutional changes of the brain. 2. Concern for stroke/positive symptomatology should be further evaluated with CT brain perfusion/CTA or MRI of the brain for further assessment. N.B. : The above Results were Read Back by Melvin Chicas MD to Blas Khoury MD, and understanding confirmed on 07/30/2023 11:51:29 (ET). Electronically Signed: Melvin Chicas MD at 11:52 EST , Head/Neck CTA 07/30/23 11:37 IMPRESSION: There is no demonstrated aneurysm of the [place]. There is no visualized thrombus of the large arteries of the brain or hemodynamically significant stenosis. 1. Normal bilateral cervical carotid arteries. N.B. : The above Results were Read Back by Melvin Chicas MD to Blas Khoury MD, and understanding confirmed on 07/30/2023 12:25:09 (ET). Electronically Signed: Melvin Chicas MD at 12:27 EST , ADDENDUM: 07/30/23 1234 IMPRESSION: There is no demonstrated aneurysm of the [place]. There is no visualized thrombus of the large arteries of the brain or hemodynamically significant stenosis. 1. Normal bilateral cervical carotid arteries. N.B. : The above Results were Read Back by Melvin Chicas MD to Blas Khoury MD, and understanding confirmed on 07/30/2023 12:25:09 (ET). 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 Acute CVA of the right MCA/HLD ? TNK was given, continue with post TNK protocol in the ICU ? Continue with aggressive blood pressure control ? Given his administration of TNK we will hold aspirin and Plavix ? Appreciate neurology's assistance ? Will transition simvastatin to Lipitor ? Continue with telemetry and will likely need Holter monitor on discharge given his history of TIAs 2. Interstitial lung disease from agent orange ? Continue with inhalers ? Stable?not currently hypoxic 3. DM2 ? Will hold his metformin ? Will place on sliding scale insulin ? Accu-Cheks ACHS ? Will monitor make adjustments as necessary 4. Anxiety/depression ? Stable ? Continue with Zoloft DVT: SCDs 75 minutes was spent on direct patient care, including documentation as well as chart review and collaboration with colleagues Charges/Coding Visit Charges Inpatient E&M: 45038 Init Hosp L3
[2023-07-30 19:02] LABS: Bedside Glucose 131 mg/dL (74-106)
[2023-07-30] MEDS: Atorvastatin Calcium 40 MG Tablet PO (21:17)
[2023-07-30 21:42] LABS: Bedside Glucose 128 mg/dL (74-106)
--- NOTE | 2023-07-30 22:55 | NURSING ---
This RN could hear pt crying from within room; pt found asleep but w/rt wrist through the siderail. Pt wakened gently and helps reposition self, emotional support provided as pt tells this RN he has night terrors at times. Call light within reach. Pt denies other needs at this time.
[2023-07-31] VITALS (20 sets, daily range): BP systolic 102–123; BP diastolic 54–84; PULSE 55–65; RESP 12–19; TEMP 37.2–37.8; O2SAT 95–98; BMI 25.0; BMI 23.3
[2023-07-31] MEDS: 0.9% Normal Saline (1000mL) 1,000 ML 100 ML IV ×2 (07:40→17:25)
[2023-07-31] MEDS: 0.9% Saline Lock 10 ML Syringe IV (08:16)
[2023-07-31 08:37] LABS: Bedside Glucose 129 mg/dL (74-106)
--- NOTE | 2023-07-31 08:53 | PN.HOSP_ITS ---
Subjective Subjective Feels better today, the urethral pain is improved though his urine is little bit bloodier than it was yesterday Objective Data Objective Data Vital Signs: Vital Signs Temp Pulse Resp BP Pulse Ox O2 Del Method 99.1 F 57 L 12 120/64 95 Room Air 07/31/23 08:00 07/31/23 08:00 07/31/23 08:00 07/31/23 08:00 07/31/23 08:00 07/31/23 08:00 Oxygen Delivery Method Room Air Weight: 211 lb 13.828 oz Body Mass Index (BMI) 23.3 Intake & Output: Intake and Output for Last 24 Hours 07/30/23 07/31/23 08/01/23 03:59 03:59 03:59 Intake Total 1005.00 / 1005.00 1000 / 1000 Output Total 1250 / 1250 400 / 400 Balance -245.00 / -245.00 600 / 600 Lab / Micro Data 07/30/23 11:45 07/30/23 11:45 Labs: Laboratory Results - last 24 hr 07/30/23 11:45: WBC 6.1, RBC 4.10 L, Hgb 12.4 L, Hct 37.2 L, MCV 90.7, MCH 30.2, MCHC 33.3, RDW Std Deviation 45.6 H, RDW Coeff of Rafita 13.7, Plt Count 112 L, MPV 10.5, Immature Gran % (Auto) 0.700, Neut % (Auto) 69.6, Lymph % (Auto) 18.8 L, [place] % (Auto) 7.4, Eos % (Auto) 3.0, Baso % (Auto) 0.5, Absolute Neuts (auto) 4.2, Absolute Lymphs (auto) 1.14, Nucleated RBC % 0, PT 13.6, INR 1.0, APTT 29.9, Sodium 138, Potassium 4.4, Chloride 109 H, Carbon Dioxide 26.0, Anion Gap 3 L, BUN 23 H, Creatinine 1.10, Estim Creat Clear Calc 77.58, Est GFR (MDRD) Af Amer 84, Est GFR (MDRD) Non-Af 69, BUN/Creatinine Ratio 20.9 H, Glucose 157 H, Calcium 8.7, Troponin I High Sens 5 07/30/23 18:36: POC Glucose 131 H 07/30/23 21:22: POC Glucose 128 H 07/31/23 08:12: POC Glucose 129 H Radiography Diagnostic Testing: Radiology Impression Brain CT 07/30/23 11:36 IMPRESSION: 1. Chronic involutional changes of the brain. 2. Concern for stroke/positive symptomatology should be further evaluated with CT brain perfusion/CTA or MRI of the brain for further assessment. N.B. : The above Results were Read Back by Melvin Chicas MD to Blas Khoury MD, and understanding confirmed on 07/30/2023 11:51:29 (ET). Electronically Signed: Melvin Chicas MD at 11:52 EST , ADDENDUM: 07/30/23 1159 IMPRESSION: 1. Chronic involutional changes of the brain. 2. Concern for stroke/positive symptomatology should be further evaluated with CT brain perfusion/CTA or MRI of the brain for further assessment. N.B. : The above Results were Read Back by Melvin Chicas MD to Blas Khoury MD, and understanding confirmed on 07/30/2023 11:51:29 (ET). Electronically Signed: Melvin Chicas MD at 11:52 EST , Head/Neck CTA 07/30/23 11:37 IMPRESSION: There is no demonstrated aneurysm of the [place]. There is no visualized thrombus of the large arteries of the brain or hemodynamically significant stenosis. 1. Normal bilateral cervical carotid arteries. N.B. : The above Results were Read Back by Melvin Chicas MD to Blas Khoury MD, and understanding confirmed on 07/30/2023 12:25:09 (ET). Electronically Signed: Melvin Chicas MD at 12:27 EST , ADDENDUM: 07/30/23 1234 IMPRESSION: There is no demonstrated aneurysm of the [place]. There is no visualized thrombus of the large arteries of the brain or hemodynamically significant stenosis. 1. Normal bilateral cervical carotid arteries. N.B. : The above Results were Read Back by Melvin Chicas MD to Blas Khoury MD, and understanding confirmed on 07/30/2023 12:25:09 (ET). Electronically Signed: Melvin Chicas MD at 12:27 EST Reading Location ID and State: [facility] / [place] , Service support , Physical Exam Narrative General: Alert, Oriented x3, Cooperative, No apparent distress HEENT: Atraumatic, PERRLA, EOMI, Normocephalic Oral: Moist Mucosa Neck: Supple, No JVD Lungs: Diminished, Normal air movement, No rhonchi, No wheeze, No rales Cardiovascular: Regular rate, Regular Rhythm, Normal S1, Normal S2, No murmurs Abdomen: Soft, Non Tender, Non-Distended, No Hepato-splenomegaly Extremities: No edema, Capillary Refill Less than 3 Seconds Skin: No rashes, No breakdown : Mills in place with some leakage and bleeding he is having significant pain though there is urine in the Mills Musculoskeletal: No Tenderness to Palpation of Joints or Extremities Neurological: Some aphasia, with left arm and leg weakness though improved from admission, NIH of 3 Psych/Mental Status: Normal Affect, Appropriate Assessment & Plan Assessment/Plan (1) 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 Acute CVA of the right MCA/HLD ? TNK was given, continue with post TNK protocol in the ICU ? MRI today he does have a history of shrapnel but has had MRIs in the past, per patient and family, can proceed ? Continue with aggressive blood pressure control ? Given his administration of TNK we will hold aspirin and Plavix ? Appreciate neurology's assistance ? Will transition simvastatin to Lipitor ? Continue with telemetry and will likely need Holter monitor on discharge given his history of TIAs 2. Interstitial lung disease from agent orange ? Continue with inhalers ? Stable ? Not currently hypoxic 3. DM2 ? Will hold his metformin ? Will place on sliding scale insulin ? Accu-Cheks ACHS ? Will monitor make adjustments as necessary 4. Anxiety/depression ? Stable ? Continue with Zoloft DVT: SCDs Charges/Coding Visit Charges Inpatient E&M: 85691 Subs Hosp L2
[2023-07-31 09:13] LABS: Absolute Lymphocyte Count 1.09 X10^3/uL (0.83-4.51); Absolute Neutrophil Count 4.4 X10^3/uL (2.0-7.7); Basophil# 0.03 X10^3/uL; Basophil% 0.5 % (0-1); Eosinophils% 1.6 % (0-5); Hematocrit 33.9 % (40-54); Hemoglobin 11.3 g/dL (13.0-16.5); Lymphocyte # 1.09 X10^3/ul (0.83-4.51); Lymphocyte % 17.6 % (19-41); Mean Corp Hgb Conc 33.3 g/dL (32-36); Mean Corpuscular Hgb 30.2 pg (27.0-32.0); Mean Corpuscular Volume 90.6 fL (80-94); Mean Platelet Vol. 10.7 fl (6.2-12.0); Monocyte# 0.53 X10^3/uL; Monocyte% 8.5 % (0-10); NRBC Flagged by Analyzer 0 % (0-5); Neutrophil # 4.42 X10^3/uL (2.7-7.7); Neutrophil % 71.2 % (47-70); Platelet Count 112 K/mm3 (150-450); RBC Distribution Width CV 13.7 % (11.6-14.6); RBC Distribution Width SD 45.1 fl (35.1-43.9); Red Blood Count 3.74 M/mm3 (4.6-6.2); White Blood Count 6.2 K/mm3 (4.4-11.0)
[2023-07-31] MEDS: Tolterodine Tartrate 2 MG CAP.SA PO (09:16)
[2023-07-31] MEDS: Pantoprazole Sodium 40 MG Tablet PO (09:17)
[2023-07-31] MEDS: Sertraline 100 MG Tablet 200 MG PO (09:18)
[2023-07-31 09:22] LABS: Anion Gap 3 (5-15); BUN 21 mg/dL (7-18); BUN/Creat Ratio 21.9 RATIO (10-20); Calcium,Total 8.6 mg/dL (8.5-10.1); Chloride 111 mmol/L (98-107); Creatinine, Serum 0.96 mg/dL (0.70-1.30); EST Glomerular Filtration Rate 81 mL/min (>60); Est Glom Filt Rate - Afr Amer 98 mL/min (>60); Estimated Creatinine Clearance 88.89 ml/min; Glucose 144 mg/dL (74-106); Sodium Level 138 mmol/L (136-145)
--- NOTE | 2023-07-31 10:37 | NEURO.CONS ---
Assessment and Plan: Neuro Assessment/Plan ANANDA JIMENEZ is a 78 M with a past medical history of stroke and TIA, being evaluated by Teleneurology for acute ischemic stoke s/p TNKA. Pt presented with left side weakness numbness and dysarthria, recieved tnka, Exam improved this morning with NIHSS of 0, there is some questeinalble history of afib in the past. Diagnosis: *acute stroke vs TIA Plan: post tnka protocol SBP<180 DBP<[address] head 24 post tnka, repeat Ct head for any change in exam high intensity statin restart ASA and DVT ppx post stable 24h ct head stroke work up: CTA with no acute changes no carotid stenosis, TTE, Hb1c lipid panel [facility], if pt has AFIB he needs to be on AC for secondary stroke prevention( timing of restarting the AC can be discussed post mri, depending on the size of the stroke) discharge with retirement cardiac events monitor( incase there is no established history of afib) speech eval PT/OT HPI Consult Data Date of Consult: 07/31/23 HPI Narrative HPI Narrative: ANANDA JIMENEZ, is a 78 M who presents with slurred speech and dysarthria, last time known well was 07/30 at 9 am, NIHSS on presentation was 6, TNKA was given at 11 41. exam improved overnight, NIHSS is 0 on my exam this mornig, the family reports hx of AFIB/arrythemia for which he is on ASA and Plavix. [facility] Medical History (Updated 07/30/23 @ 16:43 by Magy Martinez) Atrial fibrillation Diabetes PTSD (post-traumatic stress disorder) Stroke TIA (transient ischemic attack) Home Medications albuterol sulfate 90 mcg/actuation aerosol inhaler (Ventolin HFA) 2 puff inhalation Q6H PRN PRN Sob &/Or Wheezing 12/05/15 [History Last Taken 07/29/23 20:00] aspirin 325 mg tablet 325 mg PO DAILY@0800 stroke prevention 12/05/15 [History Last Taken 07/30/23 08:00] clopidogrel 75 mg tablet 75 mg PO DAILY stroke prevention 12/05/15 [History Last Taken 07/30/23 08:00] epinephrine 0.3 mg/0.3 mL injection, auto-injector 0.3 mg IM X1 bee stings 12/05/15 [History Last Taken Unknown] loratadine 10 mg tablet (Allergy Relief (loratadine)) 10 mg PO QHS allergies 12/05/15 [History Last Taken 12/04/15] prazosin 5 mg capsule (Minipress) 5 mg PO QHS alpha elicia 12/05/15 [History Last Taken 07/29/23 20:00] sertraline 100 mg tablet 200 mg PO DAILY anxiety 12/05/15 [History Last Taken 07/30/23 08:00] ferrous sulfate 325 mg (65 mg iron) tablet (FeroSul) 325 mg PO DAILY supplement 07/30/23 [History Last Taken 07/30/23 08:00] fluticasone 250 mcg-salmeterol 50 mcg/dose blistr powdr for inhalation 1 inh inhalation BID shortness of breath 07/30/23 [History Last Taken Unknown] gabapentin 300 mg capsule 300 mg PO TID neuropathic pain 07/30/23 [History Last Taken 07/30/23 08:00] metformin 500 mg tablet 500 mg PO BID diabetes 07/30/23 [History Last Taken 07/30/23 08:00] pantoprazole 20 mg tablet,delayed release 20 mg PO DAILY stomach 07/30/23 [History Last Taken 07/30/23 08:00] simvastatin 20 mg tablet 20 mg PO QHS cholesterol 07/30/23 [History Last Taken 07/29/23 20:00] tizanidine 2 mg capsule 2 mg PO BID PRN muscle spasm 07/30/23 [History Last Taken Unknown] trospium 20 mg tablet 20 mg PO BID urinary antispasmodic 07/30/23 [History Last Taken 07/30/23 08:00] clotrimazole 1 %-betamethasone 0.05 % cream-zinc ox 20 % paste topical 1 pkg topical BID skin 07/31/23 [History Last Taken 07/30/23] trazodone 150 mg tablet 150 mg PO QHS PRN sleep 07/31/23 [History Last Taken 07/29/23 20:00] Allergy/AdvReac Type Severity Reaction Status Date / Time penicillin G Allergy Unknown Verified 07/30/23 11:46 venom-honey bee Allergy Unknown Verified 07/30/23 11:46 [bee venom (honey bee)] venom-wasp [wasp venom] Allergy Unknown Verified 07/30/23 11:46 Family History (Updated 07/30/23 @ 16:[address] Dylon Velázquez MD) Other Cancer Surgical History Hx of total knee replacement Social History Smoking Status: Current every day smoker tobacco type: cigarettes Vital Signs Vital Signs Vital Signs: 07/30/23 11:39 07/30/23 11:44 07/30/23 11:48 Temperature 97.3 F L Temperature Source Oral Pulse Rate 62 Pulse Strength Respiratory Rate 20 H Respiratory Effort Respiratory Depth Respiratory Pattern Blood Pressure 142/78 H Blood Pressure Mean 99 Blood Pressure Source Blood Pressure Position Blood Pressure Location Pulse Ox 97 Oxygen Delivery Method Room Air Room Air 07/30/23 11:52 07/30/23 11:52 07/30/23 11:36 Temperature 97.4 F L Temperature Source Temporal Pulse Rate 67 63 Pulse Strength Respiratory Rate 19 H 18 Respiratory Effort Respiratory Depth Respiratory Pattern Blood Pressure 142/78 H 134/56 H 142/78 H Blood Pressure Mean 82 99 Blood Pressure Source Monitor Blood Pressure Position Semi-Fowlers Blood Pressure Location Left Arm Pulse Ox 97 97 Oxygen Delivery Method Room Air Room Air 07/30/23 11:36 07/30/23 12:11 07/30/23 12:26 Temperature 97.3 F L 98.3 F Temperature Source Temporal Temporal Pulse Rate 65 65 61 Pulse Strength Respiratory Rate 19 H 26 H 16 Respiratory Effort Respiratory Depth Respiratory Pattern Blood Pressure 142/78 H 125/71 H 131/71 H Blood Pressure Mean 99 89 91 Blood Pressure Source Monitor Blood Pressure Position Semi-Fowlers Semi-Fowlers Blood Pressure Location Left Arm Left Arm Pulse Ox 98 97 97 Oxygen Delivery Method Room Air Room Air Room Air 07/30/23 12:33 07/30/23 12:41 07/30/23 13:00 Temperature 98.2 F 98.3 F Temperature Source Temporal Pulse Rate 59 L 62 60 Pulse Strength Respiratory Rate 15 17 17 Respiratory Effort Respiratory Depth Respiratory Pattern Blood Pressure 131/71 H 126/70 H Blood Pressure Mean 91 88 Blood Pressure Source Monitor Monitor Blood Pressure Position Semi-Fowlers Supine Blood Pressure Location Left Arm Left Arm Pulse Ox 97 95 94 Oxygen Delivery Method Room Air Room Air 07/30/23 13:15 07/30/23 13:45 07/30/23 14:00 Temperature 98.2 F 98.2 F 98.2 F Temperature Source Core Core Core Pulse Rate 56 L 59 L 58 L Pulse Strength Respiratory Rate 13 15 20 H Respiratory Effort Respiratory Depth Respiratory Pattern Blood Pressure 115/71 128/69 H 112/69 Blood Pressure Mean 85 88 83 Blood Pressure Source Monitor Monitor Monitor Blood Pressure Position Supine Supine Supine Blood Pressure Location Left Arm Left Arm Left Arm Pulse Ox 97 97 95 Oxygen Delivery Method Room Air Room Air Room Air 07/30/23 14:30 07/30/23 15:00 07/30/23 15:30 Temperature 98.1 F 98.0 F 98.1 F Temperature Source Core Core Core Pulse Rate 60 56 L 57 L Pulse Strength Respiratory Rate 18 15 19 H Respiratory Effort Respiratory Depth Respiratory Pattern Blood Pressure 117/67 118/70 114/97 H Blood Pressure Mean 83 86 102 Blood Pressure Source Monitor Monitor Monitor Blood Pressure Position Supine Supine Supine Blood Pressure Location Left Arm Left Arm Left Arm Pulse Ox 96 97 97 Oxygen Delivery Method Room Air Room Air Room Air 07/30/23 16:00 07/30/23 16:30 07/30/23 17:00 Temperature 98.1 F 98.2 F 98.2 F Temperature Source Core Core Core Pulse Rate 53 L 58 L 56 L Pulse Strength Respiratory Rate 13 15 21 H Respiratory Effort Respiratory Depth Respiratory Pattern Blood Pressure 108/71 125/95 H 123/74 H Blood Pressure Mean 83 105 90 Blood Pressure Source Monitor Monitor Monitor Blood Pressure Position Supine Supine Supine Blood Pressure Location Left Arm Left Arm Left Arm Pulse Ox 96 93 98 Oxygen Delivery Method Room Air Room Air Room Air 07/30/23 13:00 07/30/23 16:00 07/30/23 13:30 Temperature 98.2 F Temperature Source Core Pulse Rate 59 L Pulse Strength Respiratory Rate 18 Respiratory Effort Normal Normal Respiratory Depth Normal Normal Respiratory Pattern Normal Normal Blood Pressure 112/68 Blood Pressure Mean 82 Blood Pressure Source Monitor Blood Pressure Position Supine Blood Pressure Location Left Arm Pulse Ox 97 Oxygen Delivery Method Room Air Room Air Room Air 07/30/23 17:30 07/30/23 18:00 07/30/23 18:30 Temperature Temperature Source Pulse Rate 55 L 65 62 Pulse Strength Respiratory Rate 18 21 H 22 H Respiratory Effort Respiratory Depth Respiratory Pattern Blood Pressure 119/71 115/72 118/67 Blood Pressure Mean 87 86 84 Blood Pressure Source Monitor Monitor Monitor Blood Pressure Position Semi-Fowlers Semi-Fowlers Semi-Fowlers Blood Pressure Location Right Arm Right Arm Right Arm Pulse Ox 94 93 96 Oxygen Delivery Method Room Air Room Air Room Air 07/30/23 19:00 07/30/23 19:11 07/30/23 19:30 Temperature 98.7 F Temperature Source Core Pulse Rate 71 59 L Pulse Strength Respiratory Rate 24 H 16 Respiratory Effort Respiratory Depth Respiratory Pattern Blood Pressure 118/69 112/62 Blood Pressure Mean 85 78 Blood Pressure Source Monitor Monitor Blood Pressure Position Semi-Fowlers Semi-Fowlers Blood Pressure Location Right Arm Left Arm Pulse Ox 93 96 Oxygen Delivery Method Room Air Room Air Room Air 07/30/23 20:00 07/30/23 20:00 07/30/23 20:20 Temperature Temperature Source Pulse Rate 57 L Pulse Strength Normal (2+) Respiratory Rate 17 Respiratory Effort Normal Non-Labored Respiratory Depth Normal Respiratory Pattern Normal Blood Pressure 117/63 Blood Pressure Mean 81 Blood Pressure Source Monitor Blood Pressure Position Semi-Fowlers Blood Pressure Location Left Arm Pulse Ox 97 Oxygen Delivery Method Room Air Room Air 07/30/23 21:00 07/30/23 21:00 07/30/23 22:00 Temperature 99.1 F Temperature Source Core Pulse Rate 64 62 59 L Pulse Strength Respiratory Rate 22 H 17 19 H Respiratory Effort Respiratory Depth Respiratory Pattern Blood Pressure 119/66 119/66 113/73 Blood Pressure Mean 83 83 86 Blood Pressure Source Monitor Monitor Blood Pressure Position Semi-Fowlers Semi-Fowlers Blood Pressure Location Left Arm Left Arm Pulse Ox Oxygen Delivery Method Room Air Room Air Room Air 07/30/23 23:00 07/31/23 00:00 07/31/23 01:00 Temperature 100 F H Temperature Source Core Pulse Rate 55 L 59 L 63 Pulse Strength Respiratory Rate 17 16 16 Respiratory Effort Respiratory Depth Respiratory Pattern Blood Pressure 114/85 H 120/72 111/64 Blood Pressure Mean 94 88 79 Blood Pressure Source Monitor Monitor Monitor Blood Pressure Position Semi-Fowlers Semi-Fowlers Semi-Fowlers Blood Pressure Location Left Arm Left Arm Left Arm Pulse Ox 96 Oxygen Delivery Method Room Air Room Air Room Air 07/31/23 02:00 07/31/23 03:00 07/31/23 03:00 Temperature 100.1 F H Temperature Source Core Pulse Rate 65 56 L 56 L Pulse Strength Respiratory Rate 16 16 16 Respiratory Effort Respiratory Depth Respiratory Pattern Blood Pressure 114/68 109/69 109/69 Blood Pressure Mean 83 82 82 Blood Pressure Source Monitor Monitor Blood Pressure Position Semi-Fowlers Semi-Fowlers Blood Pressure Location Left Arm Left Arm Pulse Ox Oxygen Delivery Method Room Air Room Air Room Air 07/31/23 04:00 07/31/23 05:00 07/31/23 06:00 Temperature 100.1 F H Temperature Source Core Pulse Rate 58 L 63 57 L Pulse Strength Respiratory Rate 16 17 17 Respiratory Effort Respiratory Depth Respiratory Pattern Blood Pressure 119/71 113/66 116/65 Blood Pressure Mean 87 81 82 Blood Pressure Source Monitor Monitor Monitor Blood Pressure Position Semi-Fowlers Semi-Fowlers Semi-Fowlers Blood Pressure Location Left Arm Left Arm Left Arm Pulse Ox 96 Oxygen Delivery Method Room Air Room Air Room Air 07/31/23 07:00 07/31/23 08:00 07/31/23 08:00 Temperature 99.1 F Temperature Source Core Pulse Rate 61 57 L Pulse Strength Respiratory Rate 19 H 12 Respiratory Effort Normal Respiratory Depth Normal Respiratory Pattern Normal Blood Pressure 112/69 120/64 Blood Pressure Mean 83 82 Blood Pressure Source Monitor Monitor Blood Pressure Position Semi-Fowlers Semi-Fowlers Blood Pressure Location Left Arm Left Arm Pulse Ox 95 Oxygen Delivery Method Room Air Room Air Room Air 07/31/23 09:00 07/31/23 09:32 07/31/23 10:00 Temperature 99.0 F 99.1 F Temperature Source Core Core Pulse Rate 57 L 61 Pulse Strength Respiratory Rate 14 17 Respiratory Effort Respiratory Depth Respiratory Pattern Blood Pressure 119/61 111/57 L Blood Pressure Mean 80 75 Blood Pressure Source Monitor Monitor Blood Pressure Position Semi-Fowlers Semi-Fowlers Blood Pressure Location Left Arm Left Arm Pulse Ox 95 95 96 Oxygen Delivery Method Room Air Room Air Room Air Weight Weight: 96.1 kg Body Mass Index (BMI) 23.3 EEG Results Procedure Details EEG Procedure Details: ANANDA JIMENEZ is a 78 year old M with a past medical history of , who presents for evaluation of Electroencephalogram on DATE at TIME NIHSS NIHSS Nursing Documentation NIHSS Nursing Documentation: Thrombolytic: Vital Signs & NIHSS Start: 07/30/23 11:41 Text: Assess and document vital signs and NIHSS Status: Complete within 15 minutes of tenecteplase bolus administration Freq: [id number] Protocol: Activity Type Activity Date Activity User E-sign Co-sign Detail Recorded Client Recorded Date Recorded By Document 07/30/23 13:45 DSM Desktop 07/30/23 13:52 DSM 07/30/23 13:45 Vital Signs [Temperature Protocol: VS] -Temperature (97.8 F-99.1 F) 98.2 F -Temperature Source Core [Pulse] -Pulse Rate (60-100) 59 L -Pulse Location Monitor [Respirations] -Respiratory Rate (12-18) 15 -Respiratory rate source Monitor -Pulse Oximetry 97 -Oxygen Delivery Method Room Air [Blood Pressure] -Blood Pressure (90/60-120/80) 128/69 H -Blood Pressure Mean 88 -Source Monitor -Position Supine -Blood Pressure Location Left Arm -Is the SBP > or = 180 No -Is the DBP > or = 105 No NIH Stroke Scale [NIHSS] A score of 0 is normal or asymptomatic . Total possible score is 42. Inpatient: RN or Physician to activate a stroke alert for onset of new stroke symptoms or with NIHSS increase >/= 3 points. Following change in neurological status, NIHSS will be performed per physician order or more frequently PRN. -1a. Level of Consciousness Alert; keenly responsive -1b. LOC Questions Answers BOTH questions correctly. -1c. LOC Commands Performs both tasks correctly . -2. Best Gaze Normal -3. Visual No visual loss -4. Facial Palsy Normal symmetrical movements -5a. Left Arm Drift; arm drifts downward but doesn?t hit the bed -5b. Right Arm No drift; arm holds 90 (or 45 ) degrees for full 10 seconds -6a. Left Leg Drift; leg falls by the end of 5- seconds, but does not hit bed -6b. Right Leg No drift; leg holds 30-degree position for full 5 seconds -7. Limb Ataxia Present in 2 limbs -8. Sensory Mild-to- moderate sensory loss; -9. Best Language Mild-to- moderate aphasia; -10. Dysarthria Mild-to- moderate dysarthria; -11. Extinction and Inattention No abnormality -Total 7 Query Text:A score of 0 is normal or asymptomatic. Total possible score is 42 . ED: Notify Physician for NIHSS increase by > / = 3 points. Inpatient: RN or Physician to activate a stroke alert for NIHSS increase of > / = 3 points. Thrombolytic: Vital Signs & NIHSS Start: 07/30/23 13:57 Text: Assess and document vital signs and NIHSS Status: Active within 15 minutes prior to Tenecteplase administration Freq: Q1H Protocol: Activity Type Activity Date Activity User E-sign Co-sign Detail Recorded Client Recorded Date Recorded By Document 07/31/23 10:00 DSM Desktop 07/31/23 10:34 DSM 07/31/23 10:00 Vital Signs [Temperature Protocol: VS] -Temperature (97.8 F-99.1 F) 99.1 F -Temperature Source Core [Pulse] -Pulse Rate (60-100) 61 -Pulse Location Monitor [Respirations] -Respiratory Rate (12-18) 17 -Respiratory rate source Monitor -Pulse Oximetry 96 -Oxygen Delivery Method Room Air [Blood Pressure] -Blood Pressure (90/60-120/80) 111/57 L -Blood Pressure Mean 75 -Source Monitor -Position Semi-Fowlers -Blood Pressure Location Left Arm -Is the SBP > or = 180 No -Is the DBP > or = 105 No Physical Exam Neuro Neuro Narrative: awake alert oriented so self place and time languate intact PERRL, EMOI face symmetric move all ext antigravity no drift Lab / Micro Data 07/31/23 05:10 07/31/23 05:10 Labs: Laboratory Results - last 24 hr 07/30/23 11:45: WBC 6.1, RBC 4.10 L, Hgb 12.4 L, Hct 37.2 L, MCV 90.7, MCH 30.2, MCHC 33.3, RDW Std Deviation 45.6 H, RDW Coeff of Rafita 13.7, Plt Count 112 L, MPV 10.5, Immature Gran % (Auto) 0.700, Neut % (Auto) 69.6, Lymph % (Auto) 18.8 L, Motley % (Auto) 7.4, Eos % (Auto) 3.0, Baso % (Auto) 0.5, Absolute Neuts (auto) 4.2, Absolute Lymphs (auto) 1.14, Nucleated RBC % 0, PT 13.6, INR 1.0, APTT 29.9, Sodium 138, Potassium 4.4, Chloride 109 H, Carbon Dioxide 26.0, Anion Gap 3 L, BUN 23 H, Creatinine 1.10, Estim Creat Clear Calc 77.58, Est GFR (MDRD) Af Amer 84, Est GFR (MDRD) Non-Af 69, BUN/Creatinine Ratio 20.9 H, Glucose 157 H, Calcium 8.7, Troponin I High Sens 5 07/30/23 18:36: POC Glucose 131 H 07/30/23 21:22: POC Glucose 128 H 07/31/23 05:10: WBC 6.2, RBC 3.74 L, Hgb 11.3 L, Hct 33.9 L, MCV 90.6, MCH 30.2, MCHC 33.3, RDW Std Deviation 45.1 H, RDW Coeff of Rafita 13.7, Plt Count 112 L, MPV 10.7, Immature Gran % (Auto) 0.600, Neut % (Auto) 71.2 H, Lymph % (Auto) 17.6 L, Motley % (Auto) 8.5, Eos % (Auto) 1.6, Baso % (Auto) 0.5, Absolute Neuts (auto) 4.4, Absolute Lymphs (auto) 1.09, Nucleated RBC % 0, Sodium 138, Potassium 4.0, Chloride 111 H, Carbon Dioxide 24.0, Anion Gap 3 L, BUN 21 H, Creatinine 0.96, Estim Creat Clear Calc 88.89, Est GFR (MDRD) Af Amer 98, Est GFR (MDRD) Non-Af 81, BUN/Creatinine Ratio 21.9 H, Glucose 144 H, Calcium 8.6 07/31/23 08:12: POC Glucose 129 H Imaging Radiology Impression Brain CT 07/30/23 11:36 IMPRESSION: 1. Chronic involutional changes of the brain. 2. Concern for stroke/positive symptomatology should be further evaluated with CT brain perfusion/CTA or MRI of the brain for further assessment. N.B. : The above Results were Read Back by Melvin Chicas MD to Blas Khoury MD, and understanding confirmed on 07/30/2023 11:51:29 (ET). Electronically Signed: Melvin Chicas MD at 11:52 EST , ADDENDUM: 07/30/23 1159 IMPRESSION: 1. Chronic involutional changes of the brain. 2. Concern for stroke/positive symptomatology should be further evaluated with CT brain perfusion/CTA or MRI of the brain for further assessment. N.B. : The above Results were Read Back by Melvin Chicas MD to Blas Khoury MD, and understanding confirmed on 07/30/2023 11:51:29 (ET). Electronically Signed: Melvin Chicas MD at 11:52 EST Reading Location ID and State: [address] [place] [address] , Service support , Head/Neck CTA 07/30/23 11:37 IMPRESSION: There is no demonstrated aneurysm of the [place]. There is no visualized thrombus of the large arteries of the brain or hemodynamically significant stenosis. 1. Normal bilateral cervical carotid arteries. N.B. : The above Results were Read Back by Melvin Chicas MD to Blas Khoury MD, and understanding confirmed on 07/30/2023 12:25:09 (ET). Electronically Signed: Melvin Chicas MD at 12:27 EST , ADDENDUM: 07/30/23 1234 IMPRESSION: There is no demonstrated aneurysm of the [place]. There is no visualized thrombus of the large arteries of the brain or hemodynamically significant stenosis. 1. Normal bilateral cervical carotid arteries. N.B. : The above Results were Read Back by Melvin Chicas MD to Blas Khoury MD, and understanding confirmed on 07/30/2023 12:25:09 (ET). Electronically Signed: Melvin Chicas MD at 12:27 EST , Active Medications Active Medications Active Medications: Current Medications Generic Name Dose Route Start Last Admin Trade Name Freq PRN Reason Stop Dose Admin Albuterol Sulfate 2.5 mg 07/30/23 13:43 Albuterol 2.5 Mg/3 Ml Vial.Neb. INHALATION Q4H.RT PRN wheezing Atorvastatin Calcium 40 mg 07/30/23 22:00 07/30/23 21:17 Atorvastatin Calcium 40 Mg Tablet PO 40 mg QHS EDER Administration Dextrose 0 gm 07/30/23 16:05 Dextrose 50%-Water 25 Gm/50 Ml Disp.Syrin IV X1 PRN Hypoglycemia Protocol Diphenhydramine HCl 50 mg 07/30/23 13:57 Diphenhydramine 50 Mg/Ml Syringe IV X1 PRN Allergic Reaction Epinephrine HCl 0.3 mg 07/30/23 13:57 Epi Pen (Equiv) 0.3 Mg Syringe IM 07/31/23 12:38 X1 PRN Alleric Reaction Glucagon 1 mg 07/30/23 16:05 Glucagon 1 Mg/Ml Syringe IM X1 PRN Hypoglycemia Nicardipine/Sodium Chloride 20 mg in 200 mls @ 50 mls/hr 07/30/23 13:57 Cardene-Hasmukh 20 Mg/200 Ml Soln CONT INF Q4H PRN See Instructions Protocol 5 MG/HR Famotidine 20 mg/ Sodium 10 mls @ 300 mls/hr 07/30/23 13:57 Chloride IV X1 PRN Allergic Reaction Sodium Chloride 1,000 mls @ 100 mls/hr 07/30/23 13:57 07/31/23 07:40 IV 100 mls/hr .Q10H EDER Administration Sodium Chloride 250 mls @ 15 mls/hr 07/30/23 15:54 IV .[id number] PRN Additional IVPB Infusion Sodium Chloride 250 mls @ 15 mls/hr 07/30/23 15:54 IV .[id number] PRN Saline Flush Insulin Human Lispro 0 unit 07/30/23 22:00 07/31/23 08:17 Insulin Lispro 100 Unit/Ml Insuln.Pen SC Not Given ACHS EDER Protocol Labetalol HCl 20 mg 07/30/23 13:57 Labetalol (Prefilled) 20 Mg/4 Ml IV X1 PRN BP Goals Methylprednisolone 125 mg 07/30/23 13:57 Methylprednisolone 125 Mg/2 Ml Vial IV X1 PRN Allergic Reaction Pantoprazole Sodium 40 mg 07/31/23 10:00 07/31/23 09:17 Pantoprazole Sodium 40 Mg Tablet PO 40 mg DAILY EDER Administration Sertraline HCl 200 mg 07/31/23 10:00 07/31/23 09:18 Sertraline 100 Mg Tablet PO 200 mg DAILY EDER Administration Sodium Chloride 10 - 40 ml 07/30/23 15:54 07/31/23 08:16 0.9% Saline Lock 10 Ml Syringe IV 20 ml UD PRN Administration SALINE FLUSH Tolterodine Tartrate 2 mg 07/31/23 10:00 07/31/23 09:16 Tolterodine Tartrate 2 Mg Cap.Sa PO 2 mg DAILY EDER Administration
--- NOTE | 2023-07-31 11:03 | MRI_ITS ---
STUDY: MRI BRAIN WITHOUT CONTRAST REASON FOR EXAM: Male, 78 years old. CVA -- MRI 24 hours after IV thrombolytic administration Lt side weakness, facial droop, slurred speech, prior stroke hx, diabetic, 24 hrs s/p TNK TECHNIQUE: Standardized multiplanar fat and water weighted pulse sequences were obtained. No ADC map is included. COMPARISON: Head CT dated July 30, 2023. MRI of the brain dated December 05, 2015 FINDINGS: There is mild cerebral atrophy with widening of the extra-axial spaces and ventricular dilatation. Normal white matter tracts of the supratentorial brain. There is no evidence for recent intracranial ischemia or other cause of cytotoxic edema on diffusion weighted imaging (DWI). Normal T2* images of the brain without demonstrated susceptibility artifact. There is no demonstrated hemosiderin stain. Normal bilateral basal ganglia. Normal thalami. There is no extra-axial fluid accumulation. Normal flow voids within the major intracranial circulation suggesting patency by spin echo criteria. Normal sella turcica, pituitary gland, infundibular stalk, optic chiasm and hypothalamus. Normal tectal plate and pineal gland. Normal midbrain, dorian and medulla. Normal cerebellum. Normal basal cisterns. Normal bilateral temporal bones. Normal bilateral internal auditory canals. No demonstrated orbital abnormality, within the constraints of a routine brain study. Normal visualized paranasal sinuses. Normal calvarium and skull base. Normal visualized soft tissue structures. Normal visualized upper cervical spine. MRI/Brain without Contrast IMPRESSION: 1. Involutional changes of the brain, as described above. 2. No demonstrated acute infarct or intracranial hemorrhage. There is no signal abnormality on the diffusion-weighted sequence. Electronically Signed: Melvin Chicas MD at 14:31 EST ,
[2023-07-31] MEDS: LORazepam 2 MG/ML Syringe IV (11:15)
[2023-07-31 13:40] LABS: Bedside Glucose 117 mg/dL (74-106)
[2023-07-31 17:45] LABS: Bedside Glucose 122 mg/dL (74-106)
[2023-07-31] MEDS: Atorvastatin Calcium 40 MG Tablet PO (21:28)
[2023-08-01] VITALS: BP 115/62; PULSE 62; RESP 16; TEMP 37.6; O2SAT 98
[2023-08-01 01:14] VITALS: BMI 23.3
[2023-08-01] MEDS: 0.9% Normal Saline (1000mL) 1,000 ML 100 ML IV (02:36)
[2023-08-01 02:46] LABS: Bedside Glucose 115 mg/dL (74-106)
[2023-08-01 04:00] VITALS: BP 110/63; PULSE 56; RESP 18; TEMP 37.4; O2SAT 98
[2023-08-01 04:58] LABS: Absolute Lymphocyte Count 1.11 X10^3/uL (0.83-4.51); Absolute Neutrophil Count 4.1 X10^3/uL (2.0-7.7); Basophil# 0.04 X10^3/uL; Basophil% 0.7 % (0-1); Eosinophil# 0.18 X10^3/uL; Hematocrit 38.2 % (40-54); Hemoglobin 12.7 g/dL (13.0-16.5); Lymphocyte # 1.11 X10^3/ul (0.83-4.51); Lymphocyte % 18.6 % (19-41); Mean Corp Hgb Conc 33.2 g/dL (32-36); Mean Corpuscular Hgb 30.1 pg (27.0-32.0); Mean Corpuscular Volume 90.5 fL (80-94); Mean Platelet Vol. 10.3 fl (6.2-12.0); Monocyte# 0.52 X10^3/uL; Monocyte% 8.7 % (0-10); NRBC Flagged by Analyzer 0 % (0-5); Neutrophil # 4.08 X10^3/uL (2.7-7.7); Neutrophil % 68.2 % (47-70); Platelet Count 115 K/mm3 (150-450); RBC Distribution Width CV 13.5 % (11.6-14.6); RBC Distribution Width SD 44.7 fl (35.1-43.9); Red Blood Count 4.22 M/mm3 (4.6-6.2)
[2023-08-01 05:14] LABS: Anion Gap 4 (5-15); BUN 19 mg/dL (7-18); BUN/Creat Ratio 20.9 RATIO (10-20); Calcium,Total 8.7 mg/dL (8.5-10.1); Chloride 109 mmol/L (98-107); Creatinine, Serum 0.91 mg/dL (0.70-1.30); EST Glomerular Filtration Rate 86 mL/min (>60); Est Glom Filt Rate - Afr Amer 104 mL/min (>60); Estimated Creatinine Clearance 93.77 ml/min; Glucose 137 mg/dL (74-106); Potassium 3.8 mmol/L (3.5-5.1); Sodium Level 137 mmol/L (136-145)
[2023-08-01 05:41] VITALS: BMI 24.3
[2023-08-01 07:00] VITALS: BP 118/49; PULSE 54; RESP 14; TEMP 37.2; O2SAT 95
[2023-08-01] MEDS: Pantoprazole Sodium 40 MG Tablet PO (07:35)
[2023-08-01] MEDS: Tolterodine Tartrate 2 MG CAP.SA PO (07:35)
[2023-08-01] MEDS: Sertraline 100 MG Tablet 200 MG PO (07:35)
[2023-08-01 07:58] VITALS: BMI 24.3
[2023-08-01 07:59] LABS: Bedside Glucose 115 mg/dL (74-106)
--- NOTE | 2023-08-01 09:28 | CASEMGMT ---
RN expressed patient has concerns with caring for his . Patient's has Dementia and she has a colostomy. Patient cares for the colostomy and orders supplies. Patient also has a history of depression and overdosing on medicine in 2004. SW met with patient. Introduced self and role at [facility]. Patient acknowledged he does care for his and her colostomy. SW asked patient if he has any other supports. Patient stated his daughter and granddaughter help. SW offered a private duty list patient declined. SW asked patient if there were any other resources he might need and patient declined. Patient stated he is managing fine and his daughter will help when needed. Patient also expressed frustration with insurance and their coverage of his 's colostomy bags. Patient stated he tried to tell insurance his uses more bags than the average person, but they will not cover more supplies. They purchase extra bags on their own. SW asked patient about his depression and how he is doing. Patient stated he is managing. [facility] Patient declined needing any more resources. Flory REAVES
--- NOTE | 2023-08-01 09:29 | PN.HOSP_ITS ---
Subjective Subjective Doing well feels improved. NIH of 2 Objective Data Objective Data Vital Signs: Vital Signs Temp Pulse Resp BP Pulse Ox O2 Del Method 98.9 F 54 L 14 118/49 L 95 Room Air 08/01/23 07:00 08/01/23 07:00 08/01/23 07:00 08/01/23 07:00 08/01/23 07:00 08/01/23 08:00 Oxygen Delivery Method Room Air Weight: 221 lb 9.033 oz Body Mass Index (BMI) 24.3 Intake & Output: Intake and Output for Last 24 Hours 07/31/23 08/01/23 08/02/23 03:59 03:59 03:59 Intake Total 1005.00 / 1005.00 3383.33 / 3383.33 200 / 200 Output Total 1250 / 1250 2425 / 2425 650 / 650 Balance -245.00 / -245.00 958.33 / 958.33 -450 / -450 Lab / Micro Data 08/01/23 04:37 08/01/23 04:37 Labs: Laboratory Results - last 24 hr 07/31/23 13:23: POC Glucose 117 H 07/31/23 17:24: POC Glucose 122 H 07/31/23 21:25: POC Glucose 115 H 08/01/23 04:37: WBC 6.0, RBC 4.22 L, Hgb 12.7 L, Hct 38.2 L, MCV 90.5, MCH 30.1, MCHC 33.2, RDW Std Deviation 44.7 H, RDW Coeff of Rafita 13.5, Plt Count 115 L, MPV 10.3, Immature Gran % (Auto) 0.800, Neut % (Auto) 68.2, Lymph % (Auto) 18.6 L, Metcalfe % (Auto) 8.7, Eos % (Auto) 3.0, Baso % (Auto) 0.7, Absolute Neuts (auto) 4.1, Absolute Lymphs (auto) 1.11, Nucleated RBC % 0, Sodium 137, Potassium 3.8, Chloride 109 H, Carbon Dioxide 24.0, Anion Gap 4 L, BUN 19 H, Creatinine 0.91, Estim Creat Clear Calc 93.77, Est GFR (MDRD) Af Amer 104, Est GFR (MDRD) Non-Af 86, BUN/Creatinine Ratio 20.9 H, Glucose 137 H, Calcium 8.7 08/01/23 07:30: POC Glucose 115 H Radiography Diagnostic Testing: Radiology Impression Brain MRI 07/31/23 11:03 IMPRESSION: 1. Involutional changes of the brain, as described above. 2. No demonstrated acute infarct or intracranial hemorrhage. There is no signal abnormality on the diffusion-weighted sequence. Electronically Signed: Melvin Chicas MD at 14:31 EST Reading Location ID and State: [facility] / [place] , Service support , Physical Exam Narrative General: Alert, Oriented x3, Cooperative, No apparent distress HEENT: Atraumatic, PERRLA, EOMI, Normocephalic Oral: Moist Mucosa Neck: Supple, No JVD Lungs: Diminished, Normal air movement, No rhonchi, No wheeze, No rales Cardiovascular: Regular rate, Regular Rhythm, Normal S1, Normal S2, No murmurs Abdomen: Soft, Non Tender, Non-Distended, No Hepato-splenomegaly Extremities: No edema, Capillary Refill Less than 3 Seconds Skin: No rashes, No breakdown : Mills in place with some leakage and bleeding he is having significant pain though there is urine in the Mills Musculoskeletal: No Tenderness to Palpation of Joints or Extremities Neurological: Some aphasia, with left arm and leg weakness though improved from admission, NIH of 2 Psych/Mental Status: Normal Affect, Appropriate Assessment & Plan Assessment/Plan (1) 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 Acute CVA of the right MCA/HLD ? TNK was given, continue with post TNK protocol in the ICU ? MRI was unremarkable yesterday ? Continue with aggressive blood pressure control ? Given his administration of TNK we will hold aspirin and Plavix ? Appreciate neurology's assistance ? Will transition simvastatin to Lipitor ? Continue with telemetry and will likely need Holter monitor on discharge given his history of TIAs ? PT/OT for discharge planning 2. Interstitial lung disease from agent orange ? Continue with inhalers ? Stable ? Not currently hypoxic 3. DM2 ? Will hold his metformin ? Will place on sliding scale insulin ? Accu-Cheks ACHS ? Will monitor make adjustments as necessary 4. Anxiety/depression ? Stable ? Continue with Zoloft DVT: SCDs Charges/Coding Visit Charges Inpatient E&M: 54054 Subs Hosp L2
[2023-08-01 12:00] VITALS: BP 114/60; PULSE 54; RESP 14; TEMP 37; O2SAT 94
--- NOTE | 2023-08-01 12:25 | CASEMGMT ---
ESTEBAN POOL Face to Face with patient for initial transition planning/care coordination assessment. RN YRN introduced self and role at [facility]. Patient sitting in chair, alert and oriented, family at bedside. Patient willing to participate in assessment and is able to answer all questions appropriately. Care providers, pharmacy, and demographics verified. Patient wishes to discharge home with outpatient therapy setup at [facility], ESTEBAN POOL to assist with setup. Patient states he has no further needs or concerns at this time. CM to follow for discharge planning needs that may arise. PCP: Dr. Maldonado [place] Specialists: Patient follow with psychiatry, podiatry, and a counselor at [place] Preferred Pharmacy: [facility] Insurance: [place], [employer] Prescription Benefit: yes Living Will/HPOA: yes, daughter Kandice Oconnell. LNOK: , daughter Living Arrangements: Patient lives with in a single story home with ramp to enter. Patient states he is independent at home and care for 's colostomy Transportation: self, daughter DME/HHC: Patient has shower chair, grab bars, raised toilet, cane, walker, cpap, and pusle ox at home. Patient has had [facility] HHC in the past. Disposition Plan: Patient to discharge home with family support and follow-up plans in place. Sandra PERAZA, RN, CM
--- NOTE | 2023-08-01 14:09 | STROKE.PNOTE ---
Objective Data Objective Data Vital Signs: Vital Signs Temp Pulse Resp BP Pulse Ox O2 Del Method 98.6 F 54 L 14 114/60 94 Room Air 08/01/23 12:00 08/01/23 12:00 08/01/23 12:00 08/01/23 12:00 08/01/23 12:00 08/01/23 12:00 Oxygen Delivery Method Room Air Weight: 100.5 kg Body Mass Index (BMI) 24.3 Intake & Output: Intake and Output for Last 24 Hours 07/30/23 07/31/23 08/01/23 23:59 23:59 23:59 Intake Total 1005.00 / 1005.00 2215.00 / 2465.00 2585.00 / 2585.00 Output Total 1250 / 1250 1475 / 2425 1900 / 1900 Balance -245.00 / -245.00 740.00 / 40.00 685.00 / 685.00 Lab / Micro Data 08/01/23 04:37 08/01/23 04:37 Labs: Laboratory Results - last 24 hr 07/31/23 17:24: POC Glucose 122 H 07/31/23 21:25: POC Glucose 115 H 08/01/23 04:37: WBC 6.0, RBC 4.22 L, Hgb 12.7 L, Hct 38.2 L, MCV 90.5, MCH 30.1, MCHC 33.2, RDW Std Deviation 44.7 H, RDW Coeff of Rafita 13.5, Plt Count 115 L, MPV 10.3, Immature Gran % (Auto) 0.800, Neut % (Auto) 68.2, Lymph % (Auto) 18.6 L, Cabell % (Auto) 8.7, Eos % (Auto) 3.0, Baso % (Auto) 0.7, Absolute Neuts (auto) 4.1, Absolute Lymphs (auto) 1.11, Nucleated RBC % 0, Sodium 137, Potassium 3.8, Chloride 109 H, Carbon Dioxide 24.0, Anion Gap 4 L, BUN 19 H, Creatinine 0.91, Estim Creat Clear Calc 93.77, Est GFR (MDRD) Af Amer 104, Est GFR (MDRD) Non-Af 86, BUN/Creatinine Ratio 20.9 H, Glucose 137 H, Calcium 8.7 08/01/23 07:30: POC Glucose 115 H Radiography Diagnostic Testing: Radiology Impression Brain MRI 07/31/23 11:03 IMPRESSION: 1. Involutional changes of the brain, as described above. 2. No demonstrated acute infarct or intracranial hemorrhage. There is no signal abnormality on the diffusion-weighted sequence. Electronically Signed: Melvin Chicas MD at 14:31 EST , Subject: Neurology Subjective ANANDA JIMENEZ is a 78 year old M, who we are seeing in consultation today for advice on the management of presumed stroke s/p TNK. NIHSS 0 at this time. Assessment and Plan: Stroke Assessment/Plan Patient admitted with presumed stroke s/p TNK. Imaging including MRI, CT, CTA have not demonstrated any acute lesions. Given the description of his symptoms this most likely represents an aborted stroke but we cannot fully exclude non-ischemic etiologies. There is mention of AFib but I see no clear documented confirmation. If AFib is confirmed he should be on anticoagulation: In this setting there would not be a clear indication for concomitant anti-platelets from a strictly neurovascular point of view, but may still be indicated from a cardiovascular perspective. If AFib has not been confirmed he should be discharged with fpc monitoring with outpatient follow up. He can otherwise continue his current anti-platelet and statin therapy.
--- NOTE | 2023-08-01 15:03 | PCM.DC ---
Discharge Instructions Diet Discharge Diet: Low fat / Low cholesterol and Carb Control Diet Activity Discharge Activity: Return to Normal Activity Dressing / Incision Call your doctor if you observe: Fever of 101 or Higher, Shortness of breath, Dizziness, Fainting spells, Swelling in the ankles, Chest pain and Increased palpitations (irregular heartbeat) Follow Up Care Test Results: Test results from this visit will be discussed in further detail at your follow-up appointment, if applicable. Discharge Plan Admission Admit Date/Time: 07/30/23 12:36 Attending Provider: Dylon Velázquez Primary Care Provider: [place] Consulting Providers: Manuel Mendez; Tee Lerner; Shun Lutz; Laci Devries; Julia Conner; Kyree Laureano; Julia Us; Roosevelt Pressley; Dale Gorman; Ba Thornton; Brock Dao; Fox Soriano; Jorge Zuniga; Padmini Reyna NP; Mina Lewis; Dread Montgomery; Anca Barksdale; Jacqui Mcdonald; Alberta Jauregui; Gene Hall; Patricia Baltazar; Adams Castro; Chas Suazo; Parul Burciaga; Ras Garza; Vandana Helms; Brianne John; Leatha Crow; Jonatan Osman; Renny Kwok; Bruno Bennett; Luiza Chan; Joan Chapa Instructions Additional Instructions / Restrictions: Follow-up with your PCP in 3 to 5 days to monitor your hemoglobin and to discuss resuming your Plavix. I would wait for the 30-day event monitor before making any changes to your current therapy if you do not have A-fib on the 30-day event monitor than I would remain only on aspirin. Discharge Orders/Prescriptions Prescriptions: New atorvastatin 40 mg Tablet 40 mg PO QHS 30 Days Qty: 30 0RF Continued aspirin 325 MG tablet 325 mg PO DAILY@0800 Patient Comments: HEART HEALTH sertraline 100 MG tablet 200 mg PO DAILY Patient Comments: MENTAL HEALTH prazosin [Minipress] 5 MG capsule 5 mg PO QHS Patient Comments: SLEEP epinephrine 0.3 MG syringe 0.3 mg IM X1 Patient Comments: BEE STINGS albuterol sulfate [Ventolin HFA] 1 INHALER inhaler 2 puff inhalation Q6H PRN PRN (Reason: Sob &/Or Wheezing) Patient Comments: BREATHING loratadine [Allergy Relief (loratadine)] 10 MG tablet 10 mg PO QHS Patient Comments: ALLERGIES fluticasone propion-salmeterol 250-50 mcg/dose blister with device 1 inh inhalation BID gabapentin 300 mg capsule 300 mg PO TID trospium 20 mg tablet 20 mg PO BID Rx Instructions: administer on an empty stomach pantoprazole 20 mg tablet,delayed release (DR/EC) 20 mg PO DAILY ferrous sulfate [FeroSul] 325 mg (65 mg iron) tablet 325 mg PO DAILY metformin 500 mg tablet 500 mg PO BID tizanidine 2 mg capsule 2 mg PO BID PRN (Reason: muscle spasm) clotrimazole-betameth dip-zinc 1-0.05-20 % combo pack 1 pkg topical BID Patient Comments: apply a sufficient amount to bilat feet Rx Instructions: apply CLOTRIMAZOLE/BETAMETHASONE CREAM twice daily: use ZINC OXIDE PASTE as needed/as directed trazodone 150 mg tablet 150 mg PO QHS PRN (Reason: sleep) Held clopidogrel 75 MG tablet 75 mg PO DAILY Hold Instructions: Resume on 08/08/23. pending appointment with PCP Patient Comments: BLOOD THINNER Discontinued simvastatin 20 mg tablet 20 mg PO QHS Other Ambulatory Orders: 30 Day Event Recorder Preventi (Routine) Timeframe: 1 Day Facility: [facility] - Location: Cardiovascular Services Ordered By: Dr. Dylon Velázquez [facility]errals [facility] - Within 1 Week Disposition Disposition (needs filled in before D/C Order can be placed): Home, Self Care
--- NOTE | 2023-08-01 15:10 | CASEMGMT ---
SW completed a PHQ 9 with patient as he had a Stroke. Patient scored a 0 which indicates no depression. Patient does have a diagnosis of depression and PTSD. Patient denies any need for resources as [facility]. Flory REAVES
--- NOTE | 2023-08-01 15:37 | PCM.DC.SUM ---
Providers Date of Admission: 07/30/23 Primary Care Physician: [facility] Consultations 07/30/23 13:57 Consult: Customer Service Clerk / Pulmonary Medicine Routine Consulting Provider: Pulmonary Medicine gavino Harris Reason for Consult: stroke for thrombolytic EMERGENT Consult: Yes MD Notified: Yes Date Notified: 07/30/23 Time Notified: 12:38 Method of Notification: Verbal Consult: Tele-Neurology Routine Consulting Provider: [facility] Reason for Consult: stroke for thrombolytic EMERGENT Consult: No Notified: Yes Date Notified: 07/30/23 Time Notified: 12:38 Method of Notification: ED Physician Initiated Nursing Unit Staff Notify [facility] of Tele-Neurology Consult: Yes Reason For Visit: CVA S/P TNK Diagnosis Discharge Diagnosis (1) 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: Status: Acute Code(s): I63.511 - Cerebral infarction due to unspecified occlusion or stenosis of right middle cerebral artery Medications at Discharge Home Medications albuterol sulfate 90 mcg/actuation aerosol inhaler (Ventolin HFA) 2 puff inhalation Q6H PRN PRN Sob &/Or Wheezing 12/05/15 aspirin 325 mg tablet 325 mg PO DAILY@0800 stroke prevention 12/05/15 clopidogrel 75 mg tablet 75 mg PO DAILY stroke prevention 12/05/15 epinephrine 0.3 mg/0.3 mL injection, auto-injector 0.3 mg IM X1 bee stings 12/05/15 loratadine 10 mg tablet (Allergy Relief (loratadine)) 10 mg PO QHS allergies 12/05/15 prazosin 5 mg capsule (Minipress) 5 mg PO QHS alpha elicia 12/05/15 sertraline 100 mg tablet 200 mg PO DAILY anxiety 12/05/15 ferrous sulfate 325 mg (65 mg iron) tablet (FeroSul) 325 mg PO DAILY supplement 07/30/23 fluticasone 250 mcg-salmeterol 50 mcg/dose blistr powdr for inhalation 1 inh inhalation BID shortness of breath 07/30/23 gabapentin 300 mg capsule 300 mg PO TID neuropathic pain 07/30/23 metformin 500 mg tablet 500 mg PO BID diabetes 07/30/23 pantoprazole 20 mg tablet,delayed release 20 mg PO DAILY stomach 07/30/23 tizanidine 2 mg capsule 2 mg PO BID PRN muscle spasm 07/30/23 trospium 20 mg tablet 20 mg PO BID urinary antispasmodic 07/30/23 clotrimazole 1 %-betamethasone 0.05 % cream-zinc ox 20 % paste topical 1 pkg topical BID skin 07/31/23 trazodone 150 mg tablet 150 mg PO QHS PRN sleep 07/31/23 atorvastatin 40 mg tablet 40 mg PO QHS 30 days #30 tabs 08/01/23 Hospital Course Operations None Procedures 2-D Echocardiogram Summary of Care Provided Minutes Spent on Discharge: 33 Hospital Course: Per HPI: ANANDA JIMENEZ, is a 78 M who presents presents to the hospital for left facial droop as well as left arm and leg weakness. Last known well was in the time for thrombolytics and he was given TNK at the direction of [facility] neurology. He was then transferred to the ICU with rapid improvement in his symptoms. Prior to TNK being given he was unable to move his left arm and now he can lift it off the bed against gravity. He has had multiple mini strokes in the past but is also had fairly severe stroke as well. He is on aspirin and Plavix but he is not on any anticoagulant. My evaluation occurred after the TNK was given and he is denying any headache or visual disturbance and there is no worsening in his NIH is currently. He is complaining of penile pain secondary to traumatic Mills insertion though urine does not appear significantly bloody at this time. Hospital Course: 1. Acute CVA of the right MCA/HLD?78-year-old male presented to the hospital with significant aphasia as well as left arm and leg weakness and a left facial droop. He was within the timeframe of TNK which was given down in the ER. 24-hour MRI was negative for bleed and did not show any signs of ischemia. He was evaluated by physical therapy and Occupational Therapy and he did not need any additional therapy [facility]. There was some question as to whether or not he has a history of A-fib, he states he was told he does but was only placed on full dose aspirin and Plavix by his primary care doctor when he would need to be on full anticoagulation. During his hospitalization he was on telemetry and there was no signs of A-fib so we will plan for discharge on a 30-day event monitor, in the meantime we will continue with his full dose aspirin but hold his Plavix. Cardiology has agreed to read the 30-day event monitor. I discussed with him the plan for discharge today and he expressed understanding of the risk benefits going home and would like to go home today. The only other additional change that was made was that his simvastatin was transitioned to atorvastatin. 2. Interstitial lung disease from agent orange, type 2 diabetes, anxiety, depression are all chronic medical conditions which complicate his care. His home medications were continued where appropriate Weight / BMI Weight Weight: 221 lb 9.033 oz Body Mass Index (BMI) 24.3 ABG / Lab / Microbiology Data 08/01/23 04:37 08/01/23 04:37 Laboratory: Laboratory Results - last 24 hr 07/31/23 17:24: POC Glucose 122 H 07/31/23 21:25: POC Glucose 115 H 08/01/23 04:37: WBC 6.0, RBC 4.22 L, Hgb 12.7 L, Hct 38.2 L, MCV 90.5, MCH 30.1, MCHC 33.2, RDW Std Deviation 44.7 H, RDW Coeff of Rafita 13.5, Plt Count 115 L, MPV 10.3, Immature Gran % (Auto) 0.800, Neut % (Auto) 68.2, Lymph % (Auto) 18.6 L, Bibb % (Auto) 8.7, Eos % (Auto) 3.0, Baso % (Auto) 0.7, Absolute Neuts (auto) 4.1, Absolute Lymphs (auto) 1.11, Nucleated RBC % 0, Sodium 137, Potassium 3.8, Chloride 109 H, Carbon Dioxide 24.0, Anion Gap 4 L, BUN 19 H, Creatinine 0.91, Estim Creat Clear Calc 93.77, Est GFR (MDRD) Af Amer 104, Est GFR (MDRD) Non-Af 86, BUN/Creatinine Ratio 20.9 H, Glucose 137 H, Calcium 8.7 08/01/23 07:30: POC Glucose 115 H D/C Instructions Discharge Diet: Low fat / Low cholesterol and Carb Control Diet Call your doctor if you observe: Fever of 101 or Higher, Shortness of breath, Dizziness, Fainting spells, Swelling in the ankles, Chest pain and Increased palpitations (irregular heartbeat) Meaningful Use Info Meaningful Use Diagnoses (Choose all that apply): None applicable Discharge Plan Admission Admit Date/Time: 07/30/23 12:36 Attending Provider: Dylon Velázquez Primary Care Provider: [facility] Consulting Providers: Manuel Mendez; Tee Lerner; Shun Lutz; Laci Devries; Julia Conner; Kyree Laureano; Julia Us; Roosevelt Pressley; Dale Gorman; Ba Thornton; Brock Dao; Fox Soriano; Jorge Zuniga; Padmini Reyna NP; Mina Lewis; Dread Montgomery; Anca Barksdale; Jacqui Mcdonald; Alberta Jauregui; Gene Hall; Patricia Baltazar; Adams Castro; Chas Suazo; Parul Burciaga; Ras Garza; Vandana Helms; Brianne John; Leatha Crow; Jonatan Osman; Renny Kwok; Bruno Bennett; Luiza Chan; Joan Chapa Instructions Additional Instructions / Restrictions: Follow-up with your PCP in 3 to 5 days to monitor your hemoglobin and to discuss resuming your Plavix. I would wait for the 30-day event monitor before making any changes to your current therapy if you do not have A-fib on the 30-day event monitor than I would remain only on aspirin. Discharge Orders/Prescriptions Prescriptions: New atorvastatin 40 mg Tablet 40 mg PO QHS 30 Days Qty: 30 0RF Continued aspirin 325 MG tablet 325 mg PO DAILY@0800 Patient Comments: HEART HEALTH sertraline 100 MG tablet 200 mg PO DAILY Patient Comments: MENTAL HEALTH prazosin [Minipress] 5 MG capsule 5 mg PO QHS Patient Comments: SLEEP epinephrine 0.3 MG syringe 0.3 mg IM X1 Patient Comments: BEE STINGS albuterol sulfate [Ventolin HFA] 1 INHALER inhaler 2 puff inhalation Q6H PRN PRN (Reason: Sob &/Or Wheezing) Patient Comments: BREATHING loratadine [Allergy Relief (loratadine)] 10 MG tablet 10 mg PO QHS Patient Comments: ALLERGIES fluticasone propion-salmeterol 250-50 mcg/dose blister with device 1 inh inhalation BID gabapentin 300 mg capsule 300 mg PO TID trospium 20 mg tablet 20 mg PO BID Rx Instructions: administer on an empty stomach pantoprazole 20 mg tablet,delayed release (DR/EC) 20 mg PO DAILY ferrous sulfate [FeroSul] 325 mg (65 mg iron) tablet 325 mg PO DAILY metformin 500 mg tablet 500 mg PO BID tizanidine 2 mg capsule 2 mg PO BID PRN (Reason: muscle spasm) clotrimazole-betameth dip-zinc 1-0.05-20 % combo pack 1 pkg topical BID Patient Comments: apply a sufficient amount to bilat feet Rx Instructions: apply CLOTRIMAZOLE/BETAMETHASONE CREAM twice daily: use ZINC OXIDE PASTE as needed/as directed trazodone 150 mg tablet 150 mg PO QHS PRN (Reason: sleep) Held clopidogrel 75 MG tablet 75 mg PO DAILY Hold Instructions: Resume on 08/08/23. pending appointment with PCP Patient Comments: BLOOD THINNER Discontinued simvastatin 20 mg tablet 20 mg PO QHS Other Ambulatory Orders: 30 Day Event Recorder Preventi (Routine) Timeframe: 1 Day Facility: [facility] - Location: Cardiovascular Services Ordered By: Dr. Dylon Velázquez Referrals / [facility] Provider[facility] - Within 1 Week Disposition Disposition (needs filled in before D/C Order can be placed): Home, Self Care Charges/Coding Visit Charges Inpatient E&M: 29094 Disch Hosp >30min
--- NOTE | 2023-08-01 15:45 | CASEMGMT ---
ESTEBAN POOL received script for outpatient therapy. ESTEBAN POOL called and scheduled therapy at [facility] as requested by family. Appt scheduled for Tuesday08/05/23 at 0900. ESTEBAN POOL updated discharge packet to include appt. ESTEBAN POOL in to updated patient regarding outpatient therapy setup. Patient denies further needs or concerns at discharge.
[2023-08-01] MEDS: Aspirin 81 MG TAB.CHEW PO (16:11)
[2023-08-01 16:26] LABS: Bedside Glucose 122 mg/dL (74-106)
== END 2023-08-01 16:15 | disposition home or self-care (01) | DRG 65 ==
LOC: ED 12:30 → ICU 12:43
PROVIDERS: Admitting Provider Family Medicine; Emergency Provider Emergency Medicine; Visit Provider Family Medicine
DX: I63.511 Cerebral infarction due to unspecified occlusion or stenosis of right middle cerebral artery (principal); J84.9 Interstitial pulmonary disease, unspecified; E11.9 Type 2 diabetes mellitus without complications; J44.9 Chronic obstructive pulmonary disease, unspecified; F32.A Depression, unspecified; E78.00 Pure hypercholesterolemia, unspecified; F41.9 Anxiety disorder, unspecified; R29.712 NIHSS score 12; F43.10 Post-traumatic stress disorder, unspecified; Z86.73 Personal history of transient ischemic attack (TIA), and cerebral infarction without residual deficits; Z79.84 Long term (current) use of oral hypoglycemic drugs; Z79.51 Long term (current) use of inhaled steroids; Z87.891 Personal history of nicotine dependence; Z79.82 Long term (current) use of aspirin; Z79.899 Other long term (current) drug therapy
CPT/HCPCS: 51702; 70450; 70496; 70498; 70551; 80048; 82962; 84484; 85025; 85610; 85730; 93005; 94668; 97162; 97166; 97802; 99285; J3101; J7030; Q9967; A4216; J3490

== ENCOUNTER 2023-08-18 09:00 | Outpatient (RCR) | payer MEDICARE, OTHER, SELFPAY ==
--- NOTE | 2023-08-08 20:44 | HP.PTEVAL ---
Patient's Visit Information Visit Information Visit Information: ANANDA JIMENEZ is a 78 year old M referred to Physical Therapy by Dr. 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 Date of Evaluation: 08/05/23 Physical Therapist: Amanda Barbosa, PT, Cert MDT Visit Plan Frequency: 2x /Week Duration: 4-6 Weeks Plan: GAIT AND BALANCE TRAINING ON LEVEL SURFACES AND UP AND DOWN STEPS. CASSIA UE AND LE ROM, STRETCHING AND STRENGTHING. TRUNK AND POSTURE STRENGTHEING. HEP. Subjective Subjective: Work/Leisure: RETIRED Disability: NO Present symptoms: LEFT SIDED WEAKNESS. COULDN'T MOVE L ARM OR LEG TUESDAY. DAUGHTER CALLED THE SQUAD. PATIENT WAS WITH HIS AND CALLED THEIR DAUGHTER. SHE WAS ABLE TO BE THERE IN MINUTES. PATIENT WAS ADMIT TO [facility] UNTIL TUESDAY EVENING. D/C TO HOME TUESDAY AND REFERRED TO OUT-PATIENT PT. PATIENTS DAUGHTER REPORTS HE SLEPT ALL DAY TUESDAY BUT WAS WALKING IN THE HALLS ON TUESDAY. Pain Scale: PATIENT DENIES PAIN Is it getting better, worse or staying the same: GETTING BETTER. MOVING AROUND MORE. USING HIS BRAIN MORE AND FIGURING OUT THINGS. Commenced as a result of: NO APPARENT REASON. PATIENT IS GOING TO START WEARING A HEART MONITOR FOR 30 DAYS DUE TO HEART arrhythmia. WAITING TO GET IT IN THE MAIL. CURRENTLY PATIENT IS NOT BACK TO DRIVING OR SHOPPING YET DUE TO NOT HAVING HIS STRENGTH AND STAMINA BACK. HE AND HIS LIVE ALONE AND SHE HAS DIMENTIA. 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 Previous history/Previous treatment: HISTORY OF MANY TIA'S OF A LONG PERIOD OF TIME. HAS BEEN LIFE FLIGHTER TO [facility] IN THE PAST. THEY HAVE RANGED FROM MILD TO SEVERE BUT THIS IS THE FIRST ONE THAT HAS RESULTED IN TEMPORARY PARALYSIS OF ONE SIDE OF HIS BODY. Gait: INTERMITTENT USE OF CANE FOR KNEES PRIOR TO THIS STROKE (CASSIA TKR'S) BUT USING CONSTANTLY NOW. Bowel or Bladder Dysfunction: NO Unexplained weight loss: NO Imaging: YES - REVEALING STROKE PMH/Recent major surgery: NIDDM. PTSD. SEE BELOW. Objective Objective: THIS PATIENT PRESENTS TO PHYSICAL THERAPY WITH HIS DAUGHTER MELQUIADES. HE GOES BY [employer]. HE TRANSFERS INDEP'LY FROM SIT TO PUBLIC TRANSIT SPECIALIST THE LOBBY WITH R UE ASSIST AND IT TAKES HIM A MINUTE TO GET HIS BALANCE BEFORE INITIATING GAIT. HE AMBULATES LILIAN FROM THE LOBBY TO THE TREATMENT ROOM X APPROX [address]E AND SLOW CADANCE TALKING TO THIS PT AND HIS DAUGHTER. NO LOB. HE REPORTS THIS IS A PRETTY LONG WALK FOR HIM. HE IS PLEASANT AND COOPERATIVE TO WORK WITH AND HIS DAUGHTER IS HELPFUL WITH HIS HISTORY DURING THE EVALUATION. HE FOLLOWS COMMANDS WELL AND ASSISTS WITH HIS HISTORY WITH THE HELP OF HIS DAUGHTER. ROM deficit: R U AND LE ROM IS WFL BUT HE IS ONLY ABLE TO ELEVATE HIS L UE ABOUT 90 DEG AND DORSIFLEX HIS L ANKLE ABOUT 50%. HE IS ABLE TO FULLY FLEX AND EXTEND HIS L ELBOW, ROTATE HIS FOREARM AND OPEN AND CLOSE HIS HAND. HE HAS AN APPOX 20 DEG EXT LAG OF HIS L KNEE EXTENSION. Motor deficit: R CLERICAL ASSISTANT STRENGTH =42 LBS, L = 3 LBS. R UE GROSSLY 4/5. L UE GROSSLY 2+/5. R LE GROSSLY 4/5. L LE GROSSLY 2+ TO 3-/5. PATIENT IS ABLE TO TRANSFER LILIAN FROM SIT TO STAND WITH ONE (RUE) ASSIST. DURING STS TEST ON 3 ATTEMPT PATIENT REQUIRED +1 ASSIST TO MAINTAIN HIS BALANCE. OTHER: PATIENT SUDDENLY BECAME TEARFUL FOR NO APPARENT REASON DURING THE EVALUATION WHEN HE WAS AFRAID HE WAS GOING TO BE ASKED TO CRAWL BUT QUICKLY CALMED DOWN WHEN HE REALIZED HE WAS NOT. NEEDING ASSIST TO MAINTAIN HIS BALANCE ON 3RD ATTEMPT DURING 30 SEC STS TEST ALSO CONCERNED PATIENT BUT HIS DAUGHTER AND THIS PT SEEMED TO BE ABLE TO QUICKLY CALM HIM DOWN AND RE-ASSURE HIM THAT IT WAS NORMAL FOR HIM TO NEED TIME TO GET HIS STRENGTH BACK AFTER THE STROKE. ALL PARTIES WERE AGREEABLE WITH TAKING PATIENT BACK OUT TO CAR IN WHEELCHAIR SO NOT TO CAUSE HIM ANYMORE ANXIETY TODAY. PATIENT WAS PLEASANT AT DEPARTURE AND EXPRESSED APPRECIATION FOR CARE GIVEN. SEE STS AND TUG TIMES BELOW. Balance/Special Test Scores Lower Extremity Functional Score: 24 TUG Test Time Seconds: 24.96 30 Second Chair Rise Test Seconds: 2 Goals Goal 1:: PATIENT WILL COMPLETE 6 STANDS IN 30 SECS WITH ONE UE ASSIST TO DEMONSTRATE IMPROVED FUNCTIONAL STRENGTH Goal Time Frame: 6-8 Weeks Goal 2:: PATIENT WILL COMPLETE TUG IN < 20 SECS WITH LEAST AD TO DEMONSTRATE IMPROVED GAIT STABILITY Goal Time Frame: 4-6 Weeks Goal 3:: INDEP AND SAFE GAIT ON LEVEL SURFACES WITH LEAST ASSISTIVE DEVICE COMMUNITY DISTANCES TO ALLOW FOR RETURN TO PLOF. Goal Time Frame: 6-8 Weeks Goal 4:: PATIENT WILL BE ABLE TO ASCEND AND DESCEND STEP SAFELY ONE STEP AT A TIME WITH ONE HR. Goal Time Frame: 4-6 Weeks Goal 5:: PATIENT WILL BE INDEP WITH A HEP FOR CONTINUED IMPROVEMENT ONCE FORMAL PHYSICAL THERAPY CONCLUDES. Goal Time Frame: 6-8 Weeks Rehabilitation Potential Rehabilitation Potential: Good Anticipated Interventions Patient/Client Instruction: Educate patient on: Condition, Plan of Care and Risk Factors For the Purpose of:: To improve self management Therapeutic Exercise to Include: Strength training, Endurance training, Balance training, Body mechanics, Postural training, Flexibilty training, Gait and locomotor training and Neuromotor development For the Purpose of:: To improve muscle performance and motor function, To improve ability to perform ADL's, To increase tolerance to activity/condition/position, To improve ability of physical actions for home/community/work/leisure, To improve gait and locomotor functions, To decrease soft tissue restriction, To increase flexibility/ROM and To improve safety with gait Text: Thank you for the opportunity to evaluate your patient. For Medicare and Medicare HMO plans, please review the plan of care and approve it. It will need to be FAXED BACK to us at [phone] for Medicare purposes. For Medicare only, by signing this I certify the plan of care. Please let me know if there are questions or concerns regarding this plan of care. Physician Signature: Date:
--- NOTE | 2023-08-11 15:12 | HP.PTEVAL ---
Patient's Visit Information Visit Information Visit Information: ANANDA JIMENEZ is a 78 year old M referred to Physical Therapy by Dr. 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 Date of Evaluation: 08/05/23 Physical Therapist: Amanda Barbosa, PT, Cert MDT Visit Plan Frequency: 2x /Week Duration: 4-6 Weeks Plan: GAIT AND BALANCE TRAINING ON LEVEL SURFACES AND UP AND DOWN STEPS. CASSIA UE AND LE ROM, STRETCHING AND STRENGTHING. TRUNK AND POSTURE STRENGTHEING. HEP. Subjective Subjective: Work/Leisure: RETIRED Disability: NO Present symptoms: LEFT SIDED WEAKNESS. COULDN'T MOVE L ARM OR LEG TUESDAY. DAUGHTER CALLED THE SQUAD. PATIENT WAS WITH HIS AND CALLED THEIR DAUGHTER. SHE WAS ABLE TO BE THERE IN MINUTES. PATIENT WAS ADMIT TO [facility] UNTIL TUESDAY EVENING. D/C TO HOME TUESDAY AND REFERRED TO OUT-PATIENT PT. PATIENTS DAUGHTER REPORTS HE SLEPT ALL DAY TUESDAY BUT WAS WALKING IN THE HALLS ON TUESDAY. Pain Scale: PATIENT DENIES PAIN Is it getting better, worse or staying the same: GETTING BETTER. MOVING AROUND MORE. USING HIS BRAIN MORE AND FIGURING OUT THINGS. Commenced as a result of: NO APPARENT REASON. PATIENT IS GOING TO START WEARING A HEART MONITOR FOR 30 DAYS DUE TO HEART arrhythmia. WAITING TO GET IT IN THE MAIL. CURRENTLY PATIENT IS NOT BACK TO DRIVING OR SHOPPING YET DUE TO NOT HAVING HIS STRENGTH AND STAMINA BACK. HE AND HIS LIVE ALONE AND SHE HAS DIMENTIA. 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 Previous history/Previous treatment: HISTORY OF MANY TIA'S OF A LONG PERIOD OF TIME. HAS BEEN LIFE FLIGHTER TO [facility] IN THE PAST. THEY HAVE RANGED FROM MILD TO SEVERE BUT THIS IS THE FIRST ONE THAT HAS RESULTED IN TEMPORARY PARALYSIS OF ONE SIDE OF HIS BODY. Gait: INTERMITTENT USE OF CANE FOR KNEES PRIOR TO THIS STROKE (CASSIA TKR'S) BUT USING CONSTANTLY NOW. Bowel or Bladder Dysfunction: NO Unexplained weight loss: NO Imaging: YES - REVEALING STROKE PMH/Recent major surgery: NIDDM. PTSD. SEE BELOW. Objective Objective: THIS PATIENT PRESENTS TO PHYSICAL THERAPY WITH HIS DAUGHTER MELQUIADES. HE GOES BY [employer]. HE TRANSFERS INDEP'LY FROM SIT TO FENCE ERECTOR SUPERVISOR THE LOBBY WITH R UE ASSIST AND IT TAKES HIM A MINUTE TO GET HIS BALANCE BEFORE INITIATING GAIT. HE AMBULATES LILIAN FROM THE LOBBY TO THE TREATMENT ROOM X APPROX [address] CANE AND SLOW CADANCE TALKING TO THIS PT AND HIS DAUGHTER. NO LOB. HE REPORTS THIS IS A PRETTY LONG WALK FOR HIM. HE IS PLEASANT AND COOPERATIVE TO WORK WITH AND HIS DAUGHTER IS HELPFUL WITH HIS HISTORY DURING THE EVALUATION. HE FOLLOWS COMMANDS WELL AND ASSISTS WITH HIS HISTORY WITH THE HELP OF HIS DAUGHTER. ROM deficit: R U AND LE ROM IS WFL BUT HE IS ONLY ABLE TO ELEVATE HIS L UE ABOUT 90 DEG AND DORSIFLEX HIS L ANKLE ABOUT 50%. HE IS ABLE TO FULLY FLEX AND EXTEND HIS L ELBOW, ROTATE HIS FOREARM AND OPEN AND CLOSE HIS HAND. HE HAS AN APPOX 20 DEG EXT LAG OF HIS L KNEE EXTENSION. Motor deficit: R DRUG ABUSE PROGRAM COORDINATOR STRENGTH =42 LBS, L = 3 LBS. R UE GROSSLY 4/5. L UE GROSSLY 2+/5. R LE GROSSLY 4/5. L LE GROSSLY 2+ TO 3-/5. PATIENT IS ABLE TO TRANSFER LILIAN FROM SIT TO STAND WITH ONE (RUE) ASSIST. DURING STS TEST ON 3 ATTEMPT PATIENT REQUIRED +1 ASSIST TO MAINTAIN HIS BALANCE. OTHER: PATIENT SUDDENLY BECAME TEARFUL FOR NO APPARENT REASON DURING THE EVALUATION WHEN HE WAS AFRAID HE WAS GOING TO BE ASKED TO CRAWL BUT QUICKLY CALMED DOWN WHEN HE REALIZED HE WAS NOT. NEEDING ASSIST TO MAINTAIN HIS BALANCE ON 3RD ATTEMPT DURING 30 SEC STS TEST ALSO CONCERNED PATIENT BUT HIS DAUGHTER AND THIS PT SEEMED TO BE ABLE TO QUICKLY CALM HIM DOWN AND RE-ASSURE HIM THAT IT WAS NORMAL FOR HIM TO NEED TIME TO GET HIS STRENGTH BACK AFTER THE STROKE. ALL PARTIES WERE AGREEABLE WITH TAKING PATIENT BACK OUT TO CAR IN WHEELCHAIR SO NOT TO CAUSE HIM ANYMORE ANXIETY TODAY. PATIENT WAS PLEASANT AT DEPARTURE AND EXPRESSED APPRECIATION FOR CARE GIVEN. SEE STS AND TUG TIMES BELOW. Balance/Special Test Scores Lower Extremity Functional Score: 24 TUG Test Time Seconds: 24.96 30 Second Chair Rise Test Seconds: 2 Goals Goal 1:: PATIENT WILL COMPLETE 6 STANDS IN 30 SECS WITH ONE UE ASSIST TO DEMONSTRATE IMPROVED FUNCTIONAL STRENGTH Goal Time Frame: 6-8 Weeks Goal 2:: PATIENT WILL COMPLETE TUG IN < 20 SECS WITH LEAST AD TO DEMONSTRATE IMPROVED GAIT STABILITY Goal Time Frame: 4-6 Weeks Goal 3:: INDEP AND SAFE GAIT ON LEVEL SURFACES WITH LEAST ASSISTIVE DEVICE COMMUNITY DISTANCES TO ALLOW FOR RETURN TO PLOF. Goal Time Frame: 6-8 Weeks Goal 4:: PATIENT WILL BE ABLE TO ASCEND AND DESCEND STEP SAFELY ONE STEP AT A TIME WITH ONE HR. Goal Time Frame: 4-6 Weeks Goal 5:: PATIENT WILL BE INDEP WITH A HEP FOR CONTINUED IMPROVEMENT ONCE FORMAL PHYSICAL THERAPY CONCLUDES. Goal Time Frame: 6-8 Weeks Rehabilitation Potential Physical Therapy Diagnosis: THIS PATIENT PRESENTS TO PT WITH HYPOMOBILITY, LUE AND LE DECREASED ROM AND WEAKNESS. IMPAIRED GAIT. Rehabilitation Potential: Good Anticipated Interventions Patient/Client Instruction: Educate patient on: Condition, Plan of Care and Risk Factors For the Purpose of:: To improve self management Therapeutic Exercise to Include: Strength training, Endurance training, Balance training, Body mechanics, Postural training, Flexibilty training, Gait and locomotor training and Neuromotor development For the Purpose of:: To improve muscle performance and motor function, To improve ability to perform ADL's, To increase tolerance to activity/condition/position, To improve ability of physical actions for home/community/work/leisure, To improve gait and locomotor functions, To decrease soft tissue restriction, To increase flexibility/ROM and To improve safety with gait Text: Thank you for the opportunity to evaluate your patient. For Medicare and Medicare HMO plans, please review the plan of care and approve it. It will need to be FAXED BACK to us at [phone] for Medicare purposes. For Medicare only, by signing this I certify the plan of care. Please let me know if there are questions or concerns regarding this plan of care. Physician Signature: Date:
--- NOTE | 2023-10-02 21:20 | HP.PT.NRP ---
Patient Information Patient Information: ANANDA JIMENEZ was seen in my office for initial evaluation on 08/05/23. The following Plan of Care was established for this patient: POC Established Initial Frequency: 2x /Week Initial Duration: 4-6 Weeks Anticipated Interventions Patient/Client Instruction: Educate patient on: Condition, Plan of Care and Risk Factors For the Purpose of:: To improve self management Therapeutic Exercise to Include: Strength training, Endurance training, Balance training, Body mechanics, Postural training, Flexibilty training, Gait and locomotor training and Neuromotor development For the Purpose of:: To improve muscle performance and motor function, To improve ability to perform ADL's, To increase tolerance to activity/condition/position, To improve ability of physical actions for home/community/work/leisure, To improve gait and locomotor functions, To decrease soft tissue restriction, To increase flexibility/ROM and To improve safety with gait Last Seen Last Seen: This patient was last seen in our office 08/18/23. Pertinent comments regarding their Physical therapy will appear below: It has been my pleasure to see this patient for a total of 3 visits. This patient has not returned to Physical Therapy for more visits and is appropriate to return to MD for further follow-up as needed. At this point I will be discontinuing this patient from physical therapy. I would be happy to see this patient again in the future if found appropriate by the physician. Thank you! Amanda Barbosa, PT, Cert MDT Balance/Gait/Functional tests Balance/Special Test Scores Lower Extremity Functional Score: 24 TUG Test Time Seconds: 24.96 Tug Test: 20-30sec.=variable mobility 30 Second Chair Rise Test Seconds: 2
== END 2023-08-18 19:00 | disposition home or self-care (01) ==
LOC: PT 09:00
PROVIDERS: Referring Provider Family Medicine; Visit Provider Family Medicine
DX: I69.354 Hemiplegia and hemiparesis following cerebral infarction affecting left non-dominant side (principal)
CPT/HCPCS: 97110; 97162

== ENCOUNTER 2025-03-07 14:30 | Emergency (ER) | payer OTHER, SELFPAY ==
[2025-03-07 14:30] VITALS: BP 114/44; PULSE 77; RESP 14; TEMP 36.6; O2SAT 98; BMI 23.6
--- NOTE | 2025-03-07 15:13 | EDS_ITS ---
HPI History of Present Illness Chief Complaint: Laceration Narrative Narrative: Patient is a 79-year-old male presenting to the emergency department for a left middle finger injury. Patient has a PMHX of right MCA stroke, HLD, chronic interstitial lung disease, depression. Patient is unsure when last tetanus vaccine was. He states around 2 PM he was using a table saw and cut his finger. Denies any other injuries. Denies any numbness or weakness in his finger/hand. Tetanus Immunization: Unknown [facility] Medical History Atrial fibrillation Diabetes Stroke PTSD (post-traumatic stress disorder) TIA (transient ischemic attack) Home Medications ?Medication ?Instructions ?Recorded ?Last Taken ?Type albuterol sulfate 90 mcg/actuation 2 puff inhalation Q 6H PRN PRN Sob 12/05/15 07/29/23 20:00 History aerosol inhaler (Ventolin HFA) &/Or Wheezing aspirin 325 mg tablet 325 mg PO DAILY@0800 stroke 12/05/15 07/30/23 08:00 History prevention clopidogrel 75 mg tablet 75 mg PO DAILY stroke preven tion 12/05/15 07/30/23 08:00 History Held on 08/01/23. Instructions: Resume on 08/08/23. pending appointment with PCP epinephrine 0.3 mg/0.3 mL 0.3 mg IM X1 bee stings 11/12 09/26 Unknown History injection, auto-injector loratadine 10 mg tablet (Allergy 10 mg PO QHS allergie s 12/05/15 12/04/15 History Relief (loratadine)) prazosin 5 mg capsule (Minipress) 5 mg PO QHS alpha bl ocker 12/05/15 07/29/23 20:00 History sertraline 100 mg tablet 200 mg PO DAILY anxiety 11/1207/30/23 08:00 History ferrous sulfate 325 mg (65 mg 325 mg PO DAILY suppleme nt 07/30/23 07/30/23 08:00 History iron) tablet (FeroSul) fluticasone 250 mcg-salmeterol 50 1 inh inhalation BID shortness of 07/30/23 Unknown History mcg/dose blistr powdr for breath inhalation gabapentin 300 mg capsule 300 mg PO TID neuropathic pa in 07/30/23 07/30/23 08:00 History metformin 500 mg tablet 500 mg PO BID diabetes 07/3007/30/23 08:00 History pantoprazole 20 mg tablet,delayed 20 mg PO DAILY stoma ch 07/30/23 07/30/23 08:00 History release tizanidine 2 mg capsule 2 mg PO BID PRN muscle spasm 07/30/23 Unknown History trospium 20 mg tablet 20 mg PO BID urinary antispa smodic 07/30/23 07/30/23 08:00 History clotrimazole 1 %-betamethasone 1 pkg topical BID skin 07/31/23 07/30/23 History 0.05 % cream-zinc ox 20 % paste topical trazodone 150 mg tablet 150 mg PO QHS PRN sleep 07/1407/29/23 20:00 History atorvastatin 40 mg tablet 40 mg PO QHS 30 days #30 tab s 08/01/23 Unknown Rx Allergy/AdvReac Type Severity Reaction Status Date / Time penicillin G Allergy Unknown Verified 03/07/25 14:31 venom-honey bee (bee venom Allergy Unknown Verified 03/07/25 14:31 (honey bee)) venom-wasp (wasp venom) Allergy Unknown Verified 03/07/25 14:31 Family History Other Cancer Surgical History Hx of total knee replacement Social History Smoking Status: Former smoker ROS ROS ED ROS Narrative see HPI EXAM Physical Exam Narrative Exam Narrative: Vital signs: Reviewed General: Alert and orientedx3. No acute distress HEENT: Head is normocephalic and atraumatic, sinuses nontender, pupils equal round and reactive. Nares are patent. Oropharynx and throat exams normal. Neck: Supple without lymphadenopathy nontender Cardiovascular: Regular rate and rhythm, no murmurs. No rubs or gallops. Normal S1 and S2 Respiratory: Clear to auscultation bilaterally. No wheezes, rales, rhonchi Abdominal: Soft and nontender. Normal bowel sounds. No guarding or rebound. Nonsurgical abdomen Extremities: Avulsion injury to the radial side of the left middle finger involving the nail and subcutaneous tissue. Does not involve bone or tendons. No FB noted on wound exploration. Able to flex and extend at all DIP. No tenderness to palpation of the finger. No active bleeding. Radial pulses intact bilaterally. Sensation intact in radial, median and ulnar nerve distributions. Skin: No rash or redness. The rest of the physical exam is unremarkable Const Vital Signs: 03/07/25 14:30 03/07/25 16:36 Temperature 98 F 97.8 F Temperature Source Temporal Pulse Rate 77 59 L Respiratory Rate 14 16 Blood Pressure 114/44 L 124/73 H Blood Pressure Mean 67 90 Pulse Ox 98 98 Oxygen Delivery Method Room Air MDM MDM MDM Narrative Medical decision making narrative: Patient is 79 year old male presenting to the ED for a finger injury. Patient was seen and examined. Vitals are stable. Patient resting bed comfortably no acute distress. X-ray of the finger was ordered. Reviewed by myself. No evidence of bony involvement, no fractures. There is appear to be a small foreign body. Tetanus vaccine updated. Patient declines any analgesia at this time. Finger tourniquet placed and wound was copiously irrigated. Dermabond was placed over the avulsed skin. Again on wound exploration there was no foreign body seen after irrigation and no evidence of bony involvement. There is no skin flap to pull together for laceration repair. When finger tourniquet was removed there was no active bleeding from the wound. Did discuss with the hand surgeon, Dr. Kapoor for close follow-up. However patient [facility]. Patient was given extensive wound care instructions. Patient discharged from the Emergency Department. I do not feel that the patient's evaluation reveals any acute reason for admission at this time. I instructed them to either follow-up with their primary care physician or promptly return to the Emergency Department for reevaluation should symptoms worsen or new symptoms develop. I explained what symptoms would indicate the need to return to the emergency department. Shared decision making was used. The patient voiced understanding of the treatment plan and is a greeable with it. Clinical impression Avulsion of fingertip History & Record Review Discussion w/independent historian: Patient and Family Radiography X-Ray: Normal and No Fracture Diagnostic Testing: Clinical Impression(s) from Imaging Studies Finger X-Ray 03/07/25 15:25 IMPRESSION: Osseous findings as above. Reading Location: [facility] Discharge Plan Triage Chief Complaint: Laceration ED Provider: Flory Liu Dx/Rx/DC Orders Clinical Impression: Avulsion of finger tip Instructions: ED Detached Fingernail or Toenail, ED Wound Care Prescriptions: No Action aspirin 325 MG tablet 325 mg PO DAILY@0800 Patient Comments: HEART HEALTH sertraline 100 MG tablet 200 mg PO DAILY Patient Comments: MENTAL HEALTH clopidogrel 75 MG tablet 75 mg PO DAILY Patient Comments: BLOOD THINNER prazosin [Minipress] 5 MG capsule 5 mg PO QHS Patient Comments: SLEEP epinephrine 0.3 MG syringe 0.3 mg IM X1 Patient Comments: BEE STINGS albuterol sulfate [Ventolin HFA] 1 INHALER inhaler 2 puff inhalation Q6H PRN PRN (Reason: Sob &/Or Wheezing) Patient Comments: BREATHING loratadine [Allergy Relief (loratadine)] 10 MG tablet 10 mg PO QHS Patient Comments: ALLERGIES fluticasone propion-salmeterol 250-50 mcg/dose blister with device 1 inh inhalation BID gabapentin 300 mg capsule 300 mg PO TID trospium 20 mg tablet 20 mg PO BID Rx Instructions: administer on an empty stomach pantoprazole 20 mg tablet,delayed release (DR/EC) 20 mg PO DAILY ferrous sulfate [FeroSul] 325 mg (65 mg iron) tablet 325 mg PO DAILY metformin 500 mg tablet 500 mg PO BID tizanidine 2 mg capsule 2 mg PO BID PRN (Reason: muscle spasm) clotrimazole-betameth dip-zinc 1-0.05-20 % combo pack 1 pkg topical BID Patient Comments: apply a sufficient amount to bilat feet Rx Instructions: apply CLOTRIMAZOLE/BETAMETHASONE CREAM twice daily: use ZINC OXIDE PASTE as needed/as directed trazodone 150 mg tablet 150 mg PO QHS PRN (Reason: sleep) atorvastatin 40 mg Tablet 40 mg PO QHS 30 Days Qty: 30 0RF [facility] Referrals: Harry Kapoor MD [Med Staff - Active Staff, Plastic Surgery] - 2 Days for wound check Clinical Impression: Avulsion of finger tip [place] [Primary Care Provider, None] Activity Restrictions/Additional Instructions: Please refer to the information on wound care. Keep the wound as clean and dry as you can. Watch for any signs of infection including redness, drainage, warmth or swelling. You need to return to the ED immediately with any of these. If the wound begins bleeding again and you cannot control it with pressure at home you also need to return to the ED. You can follow-up with the hand surgeon below as soon as possible or with someone [facility]. Print Language: Scottish Disposition Disposition: Home, Self Care Discharge Date/Time: 03/07/25 16:42
--- NOTE | 2025-03-07 15:25 | RAD_ITS ---
PROCEDURE: FINGER(S) MIN 2 VIEWS 03/07/2025 REASON FOR EXAM: AVULSION INJURY TECHNIQUE: Procedure Code: RADFIN Modality: DX Procedure: FINGER(S) MIN 2 VIEWS Laterality: FINDINGS: No evidence of acute fracture or dislocation. Wound of the tip of the 3rd digit. Tiny radiopaque body in the region of the soft tissues near the 3rd distal interphalangeal joint. RAD/Finger(s) Min 2 Views IMPRESSION: Osseous findings as above. Reading Location: [id number]
[2025-03-07 16:36] VITALS: BP 124/73; PULSE 59; RESP 16; TEMP 36.6; O2SAT 98
== END 2025-03-07 16:42 | disposition home or self-care (01) ==
PROVIDERS: Emergency Provider Student in an Organized Health Care Education/Training Program; Visit Provider Student in an Organized Health Care Education/Training Program
DX: S61.303A Unspecified open wound of left middle finger with damage to nail, initial encounter (principal); J84.9 Interstitial pulmonary disease, unspecified; I48.91 Unspecified atrial fibrillation; E11.9 Type 2 diabetes mellitus without complications; W31.2XXA Contact with powered woodworking and forming machines, initial encounter; Z23 Encounter for immunization; E78.5 Hyperlipidemia, unspecified; F32.A Depression, unspecified; F43.10 Post-traumatic stress disorder, unspecified; Z86.73 Personal history of transient ischemic attack (TIA), and cerebral infarction without residual deficits; Z79.82 Long term (current) use of aspirin; Z79.02 Long term (current) use of antithrombotics/antiplatelets; Z79.51 Long term (current) use of inhaled steroids; Z79.84 Long term (current) use of oral hypoglycemic drugs; Z79.899 Other long term (current) drug therapy; Z87.891 Personal history of nicotine dependence
CPT/HCPCS: 73140; 90471; 90715; 99282